=== PATIENT | male | born 1945 | race Caucasian/White ===

== ENCOUNTER 2016-07-02 09:28 | Observation (INO) | payer MEDICARE ==
[~2016-07-02] VITALS: Ht 185.4 cm; Wt 111.2 kg
[2016-07-02] VITALS (7 sets, daily range): BP systolic 136–161; BP diastolic 83–95; PULSE 58–67; RESP 16–20; O2SAT 97–98
[~2016-07-02 09:28] MED LIST: GLIP2.5T2 PO; LISI-571 PO; METO50TA3 PO; RIVA10TA PO
--- NOTE | 2016-07-02 09:46 | ED.REPORT ---
HPI-Abd Pain M 40 and Over Date of Service Jul 02, 2016 ED Provider: Johnson Vásquez DO Patient is a 70 year old male with a history of A-fib s/p ablation, HTN, and NIDDM who presents to the ED c/o rectal bleeding onset this morning after waking up. There has been two episodes of moderate bleeding since onset this morning but he has never experienced anything like this before. He c/o associated low back pressure. Patient denies abdominal pain or a recent hemorrhoid. He is on Metoprol and Lisinopril and was taken off Xarelto this March. Nursing Notes Stated Complaint: RECTAL BLEEDING Chief Complaint: Male Abdominal Pain Nursing Notes Reviewed: Yes Allergies: Coded Allergies: Sulfa (Sulfonamide Antibiotics) (Verified Allergy, Severe, Unknown, ) aspirin (Verified Allergy, Severe, Hives, 02/08/16) Penicillins (Unverified Allergy, Intermediate, 02/08/16) Uncoded Allergies: "Binders" used in medications (Vits) (Adverse Reaction, Severe, Hives, 02/07) NSAID's (Adverse Reaction, Intermediate, Hives (May be due to 'Binders'), 02/08/16) Scheduled Glipizide ER (Glipizide ER) 2.5 Mg Tab.er.24 2.5 MG PO DAILY Lisinopril (Lisinopril) 5 Mg Tablet 5 MG PO DAILY Metoprolol Tartrate (Metoprolol Tartrate) 50 Mg Tablet 50 MG PO BID Rivaroxaban (Xarelto) 10 Mg Tablet 20 MG PO DAILY@17 General Time Seen by MD: 09:42 Chief Complaint Rectal bleeding Hx Obtained From: Patient, Spouse Arrived By: Walk-in Sudden in Onset?: Yes Onset Occurred: 1 - 4 hours ago Symptom Duration: Since onset Progression since Onset: Constant Location: : Back Quality: Pressure Severity: Current: Mild Severity: Maximum: Mild Recent Healthcare: No recent hospitalization Similar Sx Previous: No Past Medical History Past Medical History Arthritis Reports: Diabetes mellitus, Hypertension Reports: Atrial fibrillation, Urinary tract infection Past Surgical History Ablation. TURPs x2 Smoking History Unknown if Ever Smoker Social History Alcohol Use: "Social" Drug Use: Denies drug use Ambulatory Status Independent Review of Systems Constitutional: Denies: Fever GI: Reports: Hematochezia, Denies: Abdominal pain, Diarrhea, Nausea, Vomiting Complete sys rev & neg: except as marked. Physical Exam Initial Vital Signs Vital Signs (First) Date Time Temp Pulse Resp B/P Pulse Ox O2 Delivery O2 Flow Rate FiO2 07/02/16 09:30 36.4 64 18 145/90 97 Room Air Initial VS: Reviewed, Vital signs normal Head / Eyes: Atraumatic, Normocephalic, PERRL Neck: Supple, Non-tender, Full range of motion Extremities: Vascular intact, Neuro intact, No swelling, No tenderness Skin: Warm, Dry, No cyanosis Neurologic: Alert, Oriented, Nonfocal Psychiatric: Mood/affect normal, Behavior normal, Normal thought content General/Constitutional: Awake, Alert, Well appearing Respiratory / Chest: Atraumatic, Breath sounds NL, Breath sounds = bilat, No respiratory distress Cardiovascular: Heart rate NL, Regular rhythm, Heart sounds NL Abdomen: Soft, Non-tender, No guarding, No rebound Rectum / Perineum: No discharge, No fecal impaction, No fissures, No hemorrhoids, No lesions, No mass Heriberto maroon blood. Interpretation & Diagnostics Lab Results Interpretation Result Diagram: 07/02/16 1000 07/02/16 1000 Test 07/02/16 10:00 White Blood Count 6.8th/mm3 (3.8-10.1) Red Blood Count 5.38mil/mm3 (4.40-5.80) Hemoglobin 15.6g/dL (13.8-17.2) Hematocrit 45.2% (41.0-50.0) Mean Corpuscular Volume 84.0fL (81-100) Mean Corpuscular Hemoglobin 29.0pg (27.0-35.0) Mean Corpuscular Hemoglobin Concent 34.5% (32.0-37.0) Red Cell Distribution Width 13.3% (12.3-15.4) Platelet Count 268bil/L (150-400) Neutrophils (%) (Auto) 59.3% (40-74) Lymphocytes (%) (Auto) 26.3% (14-46) Monocytes (%) (Auto) 11.5% (4-12) Eosinophils (%) (Auto) 1.9% (0-5) Basophils (%) (Auto) 0.7% (0-3) Prothrombin Time 9.9sec (8.1-12.5) Prothromb Time International Ratio 0.93ratio Sodium Level 137mEq/L (134-144) Potassium Level 4.8mEq/L (3.5-5.2) Chloride Level 103mEq/L (97-108) Carbon Dioxide Level 20mmol/L (18-29) Blood Urea Nitrogen 21mg/dL (8-27) Creatinine 1.10mg/dL (0.76-1.27) Estimat Glomerular Filtration Rate 70mL/min (>59) Glucose Level 129mg/dL (60-99) Calcium Level 9.4mg/dL (8.5-10.1) Total Bilirubin 0.7mg/dL (0.0-1.2) Aspartate Amino Transf (AST/SGOT) 24U/L (0-50) Alanine Aminotransferase (ALT/SGPT) 20U/L (0-44) Alkaline Phosphatase 58U/L (25-160) Total Protein 6.7g/dL (6.4-8.4) Albumin 4.0g/dL (3.4-5.0) ECG Interpretation ECG Interpretation: Sinus rhythm Abnormal R-wave progression, early transition Time: 12:00 Interpreted by: ED physician Abnormal Rate: Rate (61) Re-Eval/Medical Decision Med Decision/Clinical Course Concern for diverticular bleeding. Patient admitted. Source of Hx: Old records Time of Eval: 12:00 Re-Evaluation/Progress Note: Pt rechecked. Labs pending, will discuss once resulted and consult with GI. Time of Eval: 13:08 Re-Evaluation/Progress Note: Pt rechecked. Informed pt of need for admission. Pt understands and agrees with plan for admission. All questions addressed. 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 Recommends admit for serial H&H, Go-lightly prep, clear fluid diet. If rectal bleeding resolves may defer colonoscopy. He will consult. Consultation #2: Referral / Consult Name: Drew Cannon MD Call Returned at: 13:57 Welding Robot Operator: Will see patient, Agrees with plan, Accepts admit Note: Hospitalist is consulted and will admit. Counseled Regarding: Diagnosis, Lab results, Need for admission Discharge & Departure Primary Impression: Rectal hemorrhage Disposition: ADMITTED TO HOSPITAL Vital Signs - All Vital Signs Date Time Temp Pulse Resp B/P Pulse Ox O2 Delivery O2 Flow Rate FiO2 07/02/16 14:14 65 16 138/83 97 Room Air 07/02/16 13:01 62 20 136/84 97 Room Air 07/02/16 09:30 36.4 64 18 145/90 97 Room Air )( All Prior VS Reviewed: Yes Condition: Stable Referrals: NOPCP (PCP) [facility] May Attestation Portions of this note were transcribed by Mario Caldera and Damon Mesa. I, Dr. Vásquez personally performed the history, physical exam and medical decision-making; I reviewed and confirmed the accuracy of the information in the transcribed note. Signed by: May Palafox, 07/02 1200. copies to: [facility] Johnson Vásquez DO Jul 02, 2016 09:46 Mario Caldera Jul 02, 2016 09:55 DAMON MESA Jul 02, 2016 11:29
[2016-07-02] MEDS ORDERED: 0.9% Sodium Chloride 1,000 ML IV ONE (11:45)
[2016-07-02 12:03] LABS: BASOPHILS % (AUTO) 0.7 % (0-3); EOSINOPHILS % (AUTO) 1.9 % (0-5); MONOCYTES % (AUTO) 11.5 % (4-12); NEUTROPHILS % (AUTO) 59.3 % (40-74); Platelet Count 268 bil/L (150-400)
[2016-07-02 12:06] LABS: INR 0.93 ratio
[2016-07-02] MEDS ORDERED: PEG/Electrolytes 4,000 mL Solution PO ONE (13:05)
[2016-07-02] MEDS ORDERED: 0.9% Sodium Chloride 1,000 ML IV SCH (13:53)
[2016-07-02] MEDS ORDERED: Polyethylene Glycol (PEG) 17 Gm Powder PO PRN ×2 (13:55→14:30)
[2016-07-02] MEDS ORDERED: Alum-Mag Hydrox-Simeth 30 mL Suspension PO PRN ×2 (13:55→14:30)
[2016-07-02] MEDS ORDERED: Ondansetron 2 mg/mL 2 mL Inj IVPUSH PRN ×2 (13:55→14:30)
--- NOTE | 2016-07-02 14:03 | PCM.HPMED ---
Subjective Date of Service Jul 02, 2016 Primary Provider: Admitting Physician: Primary Care Physician: Ashwin Abdul Attending Physician: Admit Status: From the Emergency Department, 23-Hour Observation, Remote Telemetry Chief Complaint: Acute rectal bleeding History of Present Illness: Butch Anaya is a 70 year old male with Chronic Atrial fibrillation, Hypertension and diabetes that presents to [facility] emergency department c/o rectal bleeding. Patient reported this morning after waking up. He noticed the sensation to have a bowel movement and farted but felt something wet. He thought he had diarrhea but when he got out of the bed he noticed blood on the bed sheet and droppings on the floor. He denies any associated abdominal pain but noticed a low back pressure, midline and non radiating (no exacerbating or alleviating factors). He had a second episode a few minutes later. Denies taking any NSAIDs. He has never experienced anything like this before. He c/o associated low back pressure. Patient denies hemorrhoid. Previously on Xarelto for 3 month but never had any bleeding during that time. Last Colonoscopy was in 2011 no findings was reported. Case discussed with Dr Glez. Vitals stable and Hgb normal level. He spoke to Dr Urban who recommends admission to check serial H/H and prep for possible colonoscopy tomorrow if bleeding persists Review of Systems: Pertinent positives as noted in HPI. All other systems were reviewed and are negative Allergies Coded Allergies: Sulfa (Sulfonamide Antibiotics) (Verified Allergy, Severe, Unknown, ) aspirin (Verified Allergy, Severe, Hives, 02/08/16) Penicillins (Unverified Allergy, Intermediate, 02/08/16) Uncoded Allergies: "Binders" used in medications (Vits) (Adverse Reaction, Severe, Hives, 02/07) NSAID's (Adverse Reaction, Intermediate, Hives (May be due to 'Binders'), 02/08/16) Home Medications From [facility], NOT YET CONFIRMED Butch Anaya [id number] 1945 06/15/2016 01:00 PM 03/11 Fish Oil 1,000 mg capsule glipizide ER 2.5 mg tablet, extended release 24 hr TAKE 1 TABLET BY MOUTH EVERY DAY WITH BREAKFAST lisinopril 5 mg tablet TAKE 1 TABLET BY MOUTH EVERY DAY metoprolol tartrate 50 mg tablet take 1/2 tablet (for 25 mg) by oral route 2 times every day with meals Voltaren 1 % topical gel apply (2G) by topical route 2 times every day to the affected area(s) as needed for pain. PMH 1. Diabetes mellitus 2 with erectile dysfunction 2. Hypertension. 3. Obesity. 4. BPH 5. Chronic atrial fibrillation. ILIA and Cardioversion on 01/05/[address] Gore. Previously on Xarelto that was stopped in March (not needed as per Cardiology). s/p Ablation . Surgical History TURP s/p Ureteral stent placed Ablation procedure Family History Father had Diabetes and had pacemaker placed Mother of functional support analyst heart 2 years after No history of Colon cancer or other malignancy Social History Hx Alcohol Use: Yes Hx Substance Use: No Hx Tobacco Use: No Smoking Status: Never Smoker Living Arrangement: with Family (with ) Exam Vital Signs Vital Sign - Last Date Time Temp Pulse Resp B/P Pulse Ox O2 Delivery O2 Flow Rate FiO2 07/02/16 13:01 62 20 136/84 97 Room Air 07/02/16 09:30 36.4 Exam General: Alert, Oriented X3, Cooperative, No acute Distress Eyes: PERRLA, Scleral Anicteric No pale conjunctiva Mouth: Mouth Normal, Mucous Membranes Moist/[place] Neck: Supple, no Thyromegaly, trachea central. Chest & Lungs: Clear to auscultation & percussion, No adventitious breath sounds, no crackles, no wheeze Cardiovascular: Normal S1, Normal S2, No Murmurs/Rubs/Gallops, Regular Rate/ Rhythm, (No JVD, no peripheral edema) Pulses: Radial (present and equal), Dorsalis Pedi (present and equal) Abdomen: Soft, Non-tender, mildly distended but obese, Normoactive bowel tones. Musculoskeletal: Unremarkable. Normal range of motion, no swollen or erythematous joints Extremities: No edema, no cyanosis, no clubbing. Skin: No rashes. Warm and dry, no erythematous areas Neurological: Grossly neurologically intact, Normal Speech, Sensation Intact both legs Lymphatic: Lymph nodes Cervical and Axillary not palpable. Lab and Diagnostics Labs Laboratory Tests Test 07/02/16 10:00 White Blood Count 6.8th/mm3 (3.8-10.1) Red Blood Count 5.38mil/mm3 (4.40-5.80) Hemoglobin 15.6g/dL (13.8-17.2) Hematocrit 45.2% (41.0-50.0) Mean Corpuscular Volume 84.0fL (81-100) Mean Corpuscular Hemoglobin 29.0pg (27.0-35.0) Mean Corpuscular Hemoglobin Concent 34.5% (32.0-37.0) Red Cell Distribution Width 13.3% (12.3-15.4) Platelet Count 268bil/L (150-400) Neutrophils (%) (Auto) 59.3% (40-74) Lymphocytes (%) (Auto) 26.3% (14-46) Monocytes (%) (Auto) 11.5% (4-12) Eosinophils (%) (Auto) 1.9% (0-5) Basophils (%) (Auto) 0.7% (0-3) Prothrombin Time 9.9sec (8.1-12.5) Prothromb Time International Ratio 0.93ratio Sodium Level 137mEq/L (134-144) Potassium Level 4.8mEq/L (3.5-5.2) Chloride Level 103mEq/L (97-108) Carbon Dioxide Level 20mmol/L (18-29) Blood Urea Nitrogen 21mg/dL (8-27) Creatinine 1.10mg/dL (0.76-1.27) Estimat Glomerular Filtration Rate 70mL/min (>59) Glucose Level 129mg/dL (60-99) Calcium Level 9.4mg/dL (8.5-10.1) Total Bilirubin 0.7mg/dL (0.0-1.2) Aspartate Amino Transf (AST/SGOT) 24U/L (0-50) Alanine Aminotransferase (ALT/SGPT) 20U/L (0-44) Alkaline Phosphatase 58U/L (25-160) Total Protein 6.7g/dL (6.4-8.4) Albumin 4.0g/dL (3.4-5.0) Result Diagram: 07/02/16 1000 07/02/16 1000 X-Rays, CTs and MRIs X-RAY KUB 07/02 IMPRESSION: Unremarkable exam. Dictated by: Vandana Villalba M.D. on 07/02/2016 at 14:51 Approved by: Vandana Villalba M.D. on 07/02/2016 at 14:51 Assessment & Plan Butch Anaya is a 70 year old male with Chronic Atrial fibrillation, Hypertension and diabetes that presents to [facility] emergency department c/o rectal bleeding. 1. Acute Rectal bleeding. Present on admission Suspect Diverticular bleeding. Differential diagnosis includes Colon cancer, Vascular ectasias, Inflammatory bowel disease, Hemorrhoids, Anal fissure. - clear liquid diet for now - monitor serial H/H, transfusion triggers will be Hgb < 7 or if symptomatic - discussed case with Dr Urban, prep will be done tonight but no Colonscopy is planned unless he continues to bleed - If no bleeding tomorrow, consider discharge 2. Paroxysmal Atrial Fibrillation s/p Ablation. CHADS2 score 3 (Stroke rate 5.9 %/yr) Cardiology not recommending anticoagulations - monitor on telemetry - continue Metoprolol for rate control 3 Hypertension - continue Lisinopril 5 mg daily and Metoprolol 25 mg bid 4 Type 2 Diabetes presumed stable as he is not currently on insulin - low correction Lispro algorithm - checking A1c - holding Glipizide - Acetaminophen as needed for mild pain/fever/headache - Bowel regimen as needed - Antiemetic as needed Patient admitted under inpatient status with expected length of stay > 2 midnights for severity of present symptoms, complexities of treatment plan and risk for adverse event . Resuscitation Status: CPR: Attempt Resuscitation Drew Cannon MD Jul 02, 2016 14:03
--- NOTE | 2016-07-02 14:53 | DRSVH ---
PROCEDURE: X-RAY KUB ([id number]) INDICATIONS: rectal bleeding TECHNIQUE: One view of the abdomen acquired. COMPARISON: None. FINDINGS: Surgical changes and devices: None. Bowel: Bowel gas pattern is normal. Soft tissues: No suspicious abdominal calcifications. Visualized solid organ contours appear normal in size. Bones: No suspicious bony lesions. IMPRESSION: Unremarkable exam. Dictated by: Vandana Villalba M.D. on 07/02/2016 at 14:51 Approved by: Vandana Villalba M.D. on 07/02/2016 at 14:51
--- NOTE | 2016-07-02 14:58 | CONS ---
[address] [address] CONSULTATION REPORT PATIENT: LARY KOENIG : 1945 MR#: [id number] ADMIT: 07/02/2016 JOB ID: [id number] DATE OF SERVICE: PHYSICIAN REQUESTING CONSULTATION: Johnson Glez DO, emergency department. REASON FOR CONSULTATION: Rectal bleeding. PRIMARY CARE PROVIDER: Ashwin Abdul DO. HISTORY OF PRESENTING ILLNESS: The patient is a 70-year-old gentleman with a history of type 2 diabetes, hypertension, history of chronic atrial fibrillation, for which he underwent cardioversion late last year and is now, he states, in sinus rhythm. He presents for rectal bleeding. The patient states that he was in his usual state of health until 6 a.m. this morning, when he woke up with the urge to have a bowel movement. He normally wakes up at about this time to have a bowel movement. However, this morning, he noticed that he there was wetness in the anal area, even before he had a bowel movement. He then went to the bathroom and had a bowel movement, which was, he reports, just sharon blood. He is unsure if there was any brown stool. At this point, he decided to let the dogs out, as he normally does around this time for a walk, and then several hours later, he had the urge to have a another bowel movement. At this time, he passed more blood. At this point, he decided that he should come to the emergency department for further evaluation. He did report some mild lightheadedness with the initial episode of rectal bleeding. However, that subsequently resolved on its own. He had no shortness of breath or chest pain. He did report some lower back discomfort which also resolved with passing that initial blood. He had no other complaints, such as abdominal pain, nausea, vomiting, fevers, chills, or sweats. He reports no recent history of diarrhea or constipation. He does, however, state that yesterday, his bowel movement was not as large as he normally has. He denies any chronic history of constipation. He reports having had what he suspects is a normal colonoscopy about five years ago in [facility]. He was, however, recommended to have a repeat colonoscopy in three years but is unsure why three years rather than 10 years. He has no family history of colon cancer. He is unsure of whether he has diverticulosis based on his prior colonoscopy or was told he had internal hemorrhoids. He denies taking any anticoagulation medications. Previously, he was on Xarelto, but this was stopped following his cardioversion. He denies any chronic NSAID use. He denies any weight loss. He does report an approximately 30-pound weight gain over the past five years. He states that he is in otherwise good health. PAST MEDICAL HISTORY: Significant for type 2 diabetes, hypertension, BPH, chronic atrial fibrillation for which he has been cardioverted. PAST SURGICAL HISTORY: Includes prostate surgery. FAMILY HISTORY: States his father may have of cancer, but this is not for certain, and unsure of what type of cancer. SOCIAL HISTORY: Occasional alcohol use. Denies any tobacco use. 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 HOME MEDICATIONS: Include metoprolol, lisinopril, and glipizide. ALLERGIES: He has allergies to: 1. SULFA DRUGS. 2. ASPIRIN. 3. PENICILLIN. 4. NSAIDS. REVIEW OF SYSTEMS: His review of systems is otherwise negative, except as mentioned in the HPI. PHYSICAL EXAMINATION: His temperature is 36.4. His pulse is 62. His blood pressure is 136/84. His respiratory rate is 20. O2 saturation is 97% on room air. Generally, he is not in apparent distress. He looks younger than his stated age. He is oriented to person, place, and time, and answers questions appropriately. HEENT: No pallor, no icterus. Oropharynx is clear. No cervical lymph nodes palpable. No carotid bruits appreciated. Chest is clear to auscultation bilaterally. No telangiectasias appreciated on anterior chest wall. Abdomen exam: He does have a large ventral hernia which is prominent when intra-abdominal pressure is increased. He also has what appears to be a small umbilical hernia as well, which is easily reducible. Abdomen is obese. It is distended. It is soft. It is nontender. It is dull to percussion in bilateral flanks. Bowel sounds are appreciated. Extremities without edema. Rectal exam was performed by the emergency department physician which revealed, he stated, bright red blood. He did not notice any external hemorrhoids or fissures. LABORATORY DATA: Shows a completely normal CBC. Normal PT and INR. His comprehensive metabolic profile is completely normal except for a serum glucose of 129. He has not had any abdominal imaging tests for chest x-ray. ASSESSMENT/PLAN: A 70-year-old gentleman presenting with painless rectal bleeding, without anemia. The differential includes diverticular bleed versus neoplasm, versus ischemia, versus colitis, versus benign anorectal disease. I would recommend trending his hemoglobin and his hematocrit over the next 18 hours. If his hemoglobin and hematocrit should trend down, I feel colonoscopy would be warranted for further evaluation. However, if his H and H remain stable and he has no further bleeding, he could be discharged and he could follow up as an outpatient for colonoscopy. I do not believe we are dealing with an upper GI source, as he has no upper GI complaints. His BUN is normal and his vital signs are completely stable. In addition, on my abdominal exam, he does have a ventral hernia which he has not symptomatic from. However, would consider having General Surgery see him as an outpatient. On my physical exam, he did have some dullness to percussion in bilateral flanks and therefore will obtain an abdominal ultrasound to rule out any evidence of ascites. Thank you for allowing me to participate in the patient's care. If you should have any further questions, please do not hesitate to contact me.
[2016-07-02] MEDS: 0.9% Sodium Chloride 1,000 ML IV SCH (16:38)
--- NOTE | 2016-07-02 17:48 | NUR ---
ZUNILDA explained and signed. Copy of ZUNILDA and Medicare self administered medication information given to pt.
--- NOTE | 2016-07-02 18:42 | NUR ---
Admit Pt brought to unit at 1427 in w/c from x-ray. Needed to use restroom and was able to urinate and only had smear of blood/feces. Pt A&O x 3, DAVEY, VSS and up independently in room. IV s/l, but connected to fluids. Pt has no c/o pain. On RA and telemetry applied. Pt had punch bx of left shoulder done 3 weeks ago and has scab. Pt states he gave us advance directive in January, but wasn't seen in EMR, asked to bring new copy in.
--- NOTE | 2016-07-02 19:25 | NUR ---
Bowel prep Bowel prep started and pt tolerating well. Able to have one large, explosive BM that went onto pt, floor and into hat in toilet. Liquid with formed brown stool, no overt signs of blood. Bowel prep continues.
[2016-07-02] MEDS ORDERED: diphenhydrAMINE 50 mg Capsule PO ONE (20:55)
--- NOTE | 2016-07-02 21:34 | NUR ---
paged Lalo JAMES paged about hypertension. No new orders at this time. Lalo advised to keep watch on BP, and to page again if BP gets higher. Lalo JAMES paged about episode of hives in toes and tongue (both about the shape of a head of a pencil eraser). Lalo JAMES ordered to give 50 mg PO Benadryl, which was administered. Will continue to monitor.
[2016-07-03] VITALS (8 sets, daily range): BP systolic 113–148; BP diastolic 66–88; PULSE 59–77; RESP 15–18; O2SAT 92–98
[2016-07-03] MEDS: 0.9% Sodium Chloride 1,000 ML IV SCH ×2 (02:08→11:22)
[2016-07-03 05:25] LABS: Mean Corpuscular Hemoglobin 28.9 pg (27.0-35.0); Mean Corpuscular Volume 86.8 fL (81-100)
--- NOTE | 2016-07-03 05:56 | NUR ---
BM Pt. reported having some minor blood in stool last evening, but however reports no blood in stool this AM. Will continue to monitor.
--- NOTE | 2016-07-03 09:43 | PCM.DIMED ---
Discharge Instructions Date of Service July 03, 2016 Dates of Hospitalization Jul 02, 2016 at 14:26 Discharge Diagnosis Discharge Diagnosis Lower GI Bleed, stable, T2DM, HTN, BPH Diet Heart Healthy, Diabetic Activity No restrictions Call your provider Fever or Chills, Shortness of breath, Bleeding, Chest pain, Vomitting, Excessive diarrhea, Weakness (unilateral) Patient Instructions Follow-up plan Please F/U with Dr. Gavin in 2 weeks Please F/U with PCP in one week. F/U H&H prior to f/u with PCP Ivy Johnson DO July 03, 2016 09:42
--- NOTE | 2016-07-03 11:20 | DRSVH ---
PROCEDURE: US ABDOMEN INDICATIONS: distended abdomen TECHNIQUE: Real-time scanning was performed of the abdominal and retroperitoneal organs, with image documentatio n. COMPARISON: [facility], CT, CT KUB, 11/05/2014, 12:05. FINDINGS: Liver length: 15.25 cm Gallbladder Wall Thickness: 1.70 mm CBD: 2.10 mm Spleen length: 9.23 cm Right kidney length: 12.64 cm Left kidney length: 11.18 cm Aorta(Mid): 2.35 cm Aorta(Distal): 1.95 cm RCIA: 1.31 cm LCIA: 1.51 cm Liver: Liver is diffusely increased in echogenicity. No focal hepatic abnormalities identified. No rmal hepatic size. Simple left hepatic lobe liver cyst measuring up to 5.8 cm. Gallbladder: Multiple gallstones present. No gallbladder wall thickening or pericholecystic fluid. Negative sonographic Lee sign. Biliary ducts: Intrahepatic bile ducts are non-dilated. Extrahepatic bile duct caliber is normal. Normal is 6-7 mm or less in diameter, or 10 mm or less post-cholecystectomy. Pancreas: Visualized portions of the pancreas are sonographically normal. Spleen: Spleen is normal in size and homogeneous in echotexture. Kidneys: Kidneys are normal in size and echotexture. No hydronephrosis or nephrolithiasis. No justin d masses. Of note, distended left extrarenal pelvis with mild caliectasis redemonstrated similar to prior CT scan Aorta: Visualized aorta is normal in caliber at less than 3 cm. Iliacs: Proximal common iliac arteries are normal in caliber at less than 2.5 cm. IVC: Intrahepatic inferior vena cava is patent. Miscellaneous: No free abdominal fluid. IMPRESSION: 1. Increased hepatic echogenicity noted likely related to fatty infiltration of the liver but other s ources of hepatocellular disease cannot be excluded. Recommend clinical correlation. 2. Cholelithiasis without evidence for associated cholecystitis. 3. Prominent left extrarenal pelvis with mild pelvocaliectasis redemonstrated. Dictated by: Mac Perez RRA Interpreted: Keli Syed MD on 07/03/2016 at 11:16 Transcribed by: HARINDER on 07/03/2016 at 11:20 Approved by: Keli Syed MD, PhD on 07/03/2016 at 12:20
--- NOTE | 2016-07-03 13:57 | NUR ---
Social Work: Initial Assessment/Discharge D: EMR reviewed. Pt is 70 y/o male admitted for lower GI bleed per H&P. SW met with pt at bedside to conduct initial assessment. Pt was alert and oriented x3. Pt's insurance is Medicare and [employer] Supplemental. Pt's primary contact is Louise Anaya ([phone]). Pt has no history of HH or SNF. Pt has no LTC or VA insurance. Pt completed DPOA/advanced directive and provided a copy to the hospital in January. Pt's PCP is Dr. Abdul ([facility]). Pt lives at home with in concrete. Pt is independent at baseline. Pt drives. Pt lives in a 1-story home with no stairs. Pt does not use any DME and is independent of ADLs. Pt will transport home via POV with after 5pm today. Pt has no needs at discharge at this time. SW will continue to follow if needs arise. Assessment: Pt who is independent at baseline. Plan: Pt to transport home with via POV after 5pm today. Pt will likely have no needs at time of discharge. JOSEPHINE Alcaraz Addendum: 07/03/16 at 1358 by KATIA SANTANA Amended: Links added.
[2016-07-03] MEDS ORDERED: fentaNYL-PF 50 mCg/mL 2 mL Inj ONE (14:54)
[2016-07-03] MEDS ORDERED: fentaNYL-PF 50 mCg/mL 2 mL Inj IVPUSH PRN (15:00)
[2016-07-03] MEDS ORDERED: 0.9% Sodium Chloride 1,000 ML IV ONE ×2 (15:20→15:36)
[2016-07-03] MEDS ORDERED: METO25TA6 PO (15:34)
--- NOTE | 2016-07-03 18:29 | NUR ---
Discharge Orders for discharge were received. The patient was made aware of the plan to discharge and was agreeable to go. The patient was given information regarding his diagnosis and treatment, signs and symptoms to be aware of, follow up instructions with PCP and GI, medication instruction. The patient signified understanding of this information and his asymptomatic IV was removed intact. The patient was then dressed in his own clothing and his belongings were gathered. The patient then ambulated off the floor to the main entrance and entered a private vehicle. At the time of discharge the patient was alert and oriented, with no complaints of pain, unusual bleeding, nausea or other difficulty.
--- NOTE | 2016-07-03 20:51 | PCM.DC.MED ---
Discharge Summary Date of Service July 03, 2016 Dates of Hospitalization Date of Hospital Admission Jul 02, 2016 at 14:26 Date of Discharge: July 03, 2016 Providers: Admitting Physician: Drew Cannon MD Primary Care Physician: Nopmiguel a Attending Physician: Drew Cannon MD Diagnosis at Time of Discharge Diagnosis at Time of Discharge Lower GI Bleed, stable, T2DM, HTN, BPH, Afib Consultations GI Procedures XRay, CTs & MRIs X-RAY KUB 07/02 IMPRESSION: Unremarkable exam. Dictated by: Vandana Villalba M.D. on 07/02/2016 at 14:51 Approved by: Vandana Villalba M.D. on 07/02/2016 at 14:51 PROCEDURE: US ABDOMEN INDICATIONS: distended abdomen IMPRESSION: 1. Increased hepatic echogenicity noted likely related to fatty infiltration of the liver but other sources of hepatocellular disease cannot be excluded. Recommend clinical correlation. 2. Cholelithiasis without evidence for associated cholecystitis. 3. Prominent left extrarenal pelvis with mild pelvocaliectasis redemonstrated. Dictated by: Mac Perez RR Interpreted: Keli Syed MD on 07/03/2016 at 11:16 Transcribed by: HARINDER on 07/03/2016 at 11:20 Brief History Butch Anaya is a 70 year old male with Chronic Atrial fibrillation, Hypertension and diabetes that presents to [facility] emergency department c/o rectal bleeding. Patient reported this morning after waking up. He noticed the sensation to have a bowel movement and farted but felt something wet. He thought he had diarrhea but when he got out of the bed he noticed blood on the bed sheet and droppings on the floor. He denies any associated abdominal pain but noticed a low back pressure, midline and non radiating (no exacerbating or alleviating factors). He had a second episode a few minutes later. Denies taking any NSAIDs. He has never experienced anything like this before. He c/o associated low back pressure. Patient denies hemorrhoid. Previously on Xarelto for 3 month but never had any bleeding during that time. Last Colonoscopy was in 2011 no findings was reported. Case discussed with Dr Glez. Vitals stable and Hgb normal level. He spoke to Dr Urban who recommends admission to check serial H/H and prep for possible colonoscopy tomorrow if bleeding persists Hospital Course Butch Anaya is a 70 year old male with Chronic Atrial fibrillation, Hypertension and diabetes that presents to [facility] emergency department c/o rectal bleeding. 1. Acute Rectal bleeding. Present on admission Suspect Diverticular bleeding. Differential diagnosis includes Colon cancer, Vascular ectasias, Inflammatory bowel disease, Hemorrhoids, Anal fissure. - clear liquid diet for now - monitor serial H/H, transfusion triggers will be Hgb < 7 or if symptomatic - discussed case with Dr Urban, prep will be done tonight but no Colonscopy is planned unless he continues to bleed: Patient states that he experienced hives after drinking the colonoscopy prep, Dr. dietz has told the patient that since he would have to go through this again he would rather scope him on 07/03. Patient is scheduled to go at 2:30 PM. -- Requested. Colonoscopy results from 2012 colonoscopy from [facility]: Reviewed these records. There was a finding of sessile polyp 6 mm that was thought to be villous as well as adenomatous. 3 year follow-up is recommended. These results were communicated to Dr. Dietz [place] -- Patient underwent a colonoscopy this afternoon, per Dr. Valle, patient did not complete his prep brown stool was found as well as hemorrhoids and 8 mm polyp is resected and a clip was placed for hemostasis. Dr Valle's office will schedule a repeat colonoscopy in the coming weeks. -- On the day of discharge patient's her hemoglobin remained stable 2. Paroxysmal Atrial Fibrillation s/p Ablation. CHADS2 score 3 (Stroke rate 5.9 %/yr) Cardiology not recommending anticoagulations - monitor on telemetry - continue Metoprolol for rate control: Metoprolol restarted 07/03 -- Patient stated that metoprolol is cutting half recently to 25 mg by mouth twice a day 3 Hypertension - continue Lisinopril 5 mg daily and Metoprolol 25 mg bid: Metoprolol restarted 07/03, restart lisinopril 5/ 2 AM as he will be undergoing a procedure and will be sedated the next few hours -- He states that he is not on 50 twice a day of metoprolol as documented by his manager specialty Dr. Gore decreased it to 25 mg twice a day 4 Type 2 Diabetes presumed stable as he is not currently on insulin - low correction Lispro algorithm - checking A1c - holding Glipizide 5. Fatty liver as evidenced by the ultrasound 07/03 a.m.: Discussed this finding with patient. Counseled him on healthy diet 6 : Cholelithiasis as evidenced by the ultrasound 07/03 AM: Patient can consider elective cholecystectomy, we requested PCP follows up with us as this is not an urgent consideration. 7. Prominent left extrarenal pelvis with mild pelvocaliectasis as evidenced by the abdominal ultrasound on 07/03 : This has been there since [id number] prior imaging. We recommend that patient follows up with urology as outpatient. This can be set up via PCP. - Acetaminophen as needed for mild pain/fever/headache - Bowel regimen as needed - Antiemetic as needed Patient admitted under inpatient status with expected length of stay > 2 midnights for severity of present symptoms, complexities of treatment plan and risk for adverse event . Exam Vital Signs (Last) Date Time Temp Pulse Resp B/P Pulse Ox O2 Delivery O2 Flow Rate FiO2 07/03/16 09:25 73 07/03/16 04:59 36.6 18 137/77 96 Room Air Exam Gen.: No acute distress sitting up in chair talking with the HEENT: Normocephalic, atraumatic Heart: Regular rate and rhythm no S3-S4 sounds Lungs clear to auscultation bilaterally no crackles or wheezes Abdomen: Distended due to ventral hernia, normal bowel sounds, negative to tenderness to deep palpation Psych: Negative for anxiety Neurologic negative for focal neurological deficits Neck: Negative for thyromegaly Test 07/02/16 10:00 07/02/16 15:44 07/03/16 05:00 Neutrophils (%) (Auto) 59.3% (40-74) Lymphocytes (%) (Auto) 26.3% (14-46) Monocytes (%) (Auto) 11.5% (4-12) Eosinophils (%) (Auto) 1.9% (0-5) Basophils (%) (Auto) 0.7% (0-3) Prothrombin Time 9.9sec (8.1-12.5) Prothromb Time International Ratio 0.93ratio Total Bilirubin 0.7mg/dL (0.0-1.2) Aspartate Amino Transf (AST/SGOT) 24U/L (0-50) Alanine Aminotransferase (ALT/SGPT) 20U/L (0-44) Alkaline Phosphatase 58U/L (25-160) Total Protein 6.7g/dL (6.4-8.4) Albumin 4.0g/dL (3.4-5.0) Hold Guo Top Tube Received (Received) Hold Urine Received (Received) White Blood Count 6.3th/mm3 (3.8-10.1) Red Blood Count 5.01mil/mm3 (4.40-5.80) Hemoglobin 14.5g/dL (13.8-17.2) Hematocrit 43.5% (41.0-50.0) Mean Corpuscular Volume 86.8fL (81-100) Mean Corpuscular Hemoglobin 28.9pg (27.0-35.0) Mean Corpuscular Hemoglobin Concent 33.3% (32.0-37.0) Red Cell Distribution Width 13.3% (12.3-15.4) Platelet Count 236bil/L (150-400) Sodium Level 143mEq/L (134-144) Potassium Level 4.4mEq/L (3.5-5.2) Chloride Level 106mEq/L (97-108) Carbon Dioxide Level 24mmol/L (18-29) Blood Urea Nitrogen 15mg/dL (8-27) Creatinine 1.20mg/dL (0.76-1.27) Estimat Glomerular Filtration Rate 63mL/min (>59) Glucose Level 134mg/dL (60-99) Calcium Level 8.2mg/dL (8.5-10.1) Discharge Medications Discharge Medications Glipizide ER (Glipizide ER) 2.5 Mg Tab.er.24 2.5 MG PO DAILY (Reported) Lisinopril (Lisinopril) 5 Mg Tablet 5 MG PO DAILY (Reported) Metoprolol Tartrate (Metoprolol Tartrate) 25 Mg Tablet 25 MG PO BID Prescribed by: IVY PRINCE DO Followup Plan Follow-up plan Please F/U with Dr. Gavin in 2 weeks Please F/U with PCP in one week. F/U H&H prior to f/u with PCP Discharge Diet: Heart Healthy, Diabetic Discharge Activity: No restrictions Ivy Prince DO July 03, 2016 09:47
--- NOTE | 2016-07-03 22:53 | ENDO ---
[address] [address] ENDOSCOPY PROCEDURE PATIENT: LARY KOENIG : 1945 MR#: [id number] ADMIT: 07/02/2016 JOB ID: [id number] PROCEDURE: Colonoscopy. INDICATIONS: Rectal bleeding. The patient's ASA classification is 2, Mallampati score is 2. MEDICATIONS: 1. Versed 3 mg. 2. Fentanyl 75 mcg. INSTRUMENT USED: PCF H 180 AL. PREPARATION QUALITY: Poor. PROCEDURE DETAILS: After informed consent was obtained, the patient was brought to the GI suite, where he was placed on oxygen via nasal cannula and monitored with continuous pulse oximeter, telemetry, and blood pressure monitoring. A time-out was performed and then he was placed in a left lateral decubitus position and medications were administered for sedation. Digital rectal exam was performed and was unremarkable. The colonoscope was then inserted into the rectum and advanced under direct visualization to the cecum which was identified by the presence of the ileocecal valve and appendiceal orifice. Once the cecum was reached, the colonoscope was withdrawn back into the rectum as the mucosa and lumen were examined. In the rectum, retroflexion was performed. Following retroflexion, remaining air in the rectum was suctioned, and procedure was completed. FINDINGS: 1. The prep of the entire colon was poor. There was semi-solid stool from the rectum all the way to the cecum. 2. In the ascending colon, there was an approximately 8 mm sessile polyp that was removed with a hot snare. Following removal, one hemoclip was placed at the polypectomy site to decrease the risk of post polypectomy bleeding. 3. Retroflexed views in the rectum revealed moderate-sized internal hemorrhoids. IMPRESSION: 1. Poor prep. 2. Ascending colon polyp. 3. Internal hemorrhoids. RECOMMENDATIONS: 1. Avoid NSAIDs and anticoagulants for 72 hours. 2. Repeat colonoscopy with a two day prep as an outpatient. 3. Start diet and advance as tolerated. 4. Further plans as per the floor team. COMPLICATIONS: None. ESTIMATED BLOOD LOSS: 0.
--- NOTE | 2016-07-06 15:08 | PATH ---
SURGICAL PATHOLOGY Attending Physician:Ligia France CASE STATUS: Signed Out PATIENT NAME: LARY KOENIG PID: [id number] : 1945 DATE COLLECTED:07/03/2016 00:00 SPECIMEN: Colon, Biopsy CLINICAL HISTORY: 1). ASCENDING POLYP FINAL DIAGNOSIS: Ascending Colon, Polyp, Biopsy: Multiple portions (approximately six) of tubular adenoma; negative for high-grade dysplasia. ICD10: K63.5 GROSS DESCRIPTION: The specimen is received in one formalin filled container labeled with the patient's name, sublabeled "ascending polyp" and consists of multiple portions of tissue which aggregate to 0.9 x 0.8 x 0.4 CM. The specimen is entirely submitted in one cassette. 07/04/2016 [facility] ICD-9 CODES: CPT CODES: 1: 78890 Electronically Signed Out Bee Loza MD [facility] [address], [place] [address] Technical component performed at [facility], [facility] [address], [place], [address]
== END 2016-07-03 17:45 | disposition home or self-care (01) ==
LOC: SED 09:58 → OSC 14:26
PROVIDERS: ADMIT Hospitalist; ATTEND Hospitalist
DX: K62.5 Hemorrhage of anus and rectum (principal); D12.2 Benign neoplasm of ascending colon; K64.8 Other hemorrhoids; E11.9 Type 2 diabetes mellitus without complications; I10 Essential (primary) hypertension; N40.0 Benign prostatic hyperplasia without lower urinary tract symptoms; I48.0 Paroxysmal atrial fibrillation; K76.0 Fatty (change of) liver, not elsewhere classified; K80.20 Calculus of gallbladder without cholecystitis without obstruction; E66.9 Obesity, unspecified; Z79.01 Long term (current) use of anticoagulants; Z79.84 Long term (current) use of oral hypoglycemic drugs
CPT/HCPCS: 36415; 45385; 74000; 76700; 80048; 80053; 85014; 85018; 85025; 85027; 85610; 86850; 93005; 96360; 99285; G0378; J2250; J3010; J7030

== ENCOUNTER 2016-07-04 16:00 | Inpatient (IN) | payer MEDICARE ==
[~2016-07-04] VITALS: Ht 185.4 cm; Wt 112.0 kg
[2016-07-04] VITALS (15 sets, daily range): BP systolic 101–134; BP diastolic 56–86; PULSE 80–113; RESP 12–21; O2SAT 96–100
[~2016-07-04 16:00] MED LIST changes: +Lidocaine 1%-Epi 1:100,000 20 mL Inj ONE; +METO25TA6 PO; -METO50TA3 PO; +Propofol 10,000 mCg/mL 20 mL Inj ONE; -RIVA10TA PO
--- NOTE | 2016-07-04 16:19 | ED.REPORT ---
HPI-GI Bleed Date of Service July 04, 2016 ED Provider: Dr. Uribe Patient is a 70 year old male with a history of A-fib s/p ablation, HTN, and NIDDM presenting the ED c/o rectal bleeding. He was previously seen and admitted for rectal bleeding and was discharged yesterday. This morning he woke up with a small amount of dark blood and at 13:30 felt as though he was going to have diarrhea and noticed bright red stool. The symptoms have continued to intensify. He admits to 6 episodes of diarrhea since onset today. It has became so severe that he feels as thought he cannot hold it in. He has also noticed dizziness and generalized weakness. He denies nausea, vomiting, or abdominal pain. Nursing Notes Stated Complaint: RECTAL BLEED Chief Complaint: General Complaint Nursing Notes Reviewed: Yes Allergies: Coded Allergies: Sulfa (Sulfonamide Antibiotics) (Verified Allergy, Severe, Unknown, ) aspirin (Verified Allergy, Severe, Hives, 02/08/16) Penicillins (Unverified Allergy, Intermediate, 02/08/16) Uncoded Allergies: "Binders" used in medications (Vits) (Adverse Reaction, Severe, Hives, 02/07) NSAID's (Adverse Reaction, Intermediate, Hives (May be due to 'Binders'), 02/08/16) Scheduled Glipizide ER (Glipizide ER) 2.5 Mg Tab.er.24 2.5 MG PO DAILY Lisinopril (Lisinopril) 5 Mg Tablet 5 MG PO DAILY Metoprolol Tartrate (Metoprolol Tartrate) 25 Mg Tablet 25 MG PO BID General Time Seen by Provider: 16:25 Chief Complaint Chief Complaint: Rectal pain Hx Obtained From: Patient Arrived By: Walk-in Onset Occurred: Just prior to arrival Symptom Duration: Since onset Progression Since Onset: Rapidly worsening Similar Sx Previous: No Past Medical History Past Medical History Arthritis Reports: Diabetes mellitus, Hypertension Reports: Atrial fibrillation, Urinary tract infection Past Surgical History Ablation. TURPs x2 Smoking History Never Smoker Social History Alcohol Use: "Social" Drug Use: Denies drug use Ambulatory Status Independent Review of Systems Constitutional: Reports: Weakness - generalized GI: Reports: Bloody/tarry stool, Diarrhea, Denies: Abdominal pain, Nausea, Vomiting Hematologic: Reports Bleeding Neurologic: Reports: Dizziness Complete sys rev & neg: except as marked. Physical Exam Initial Vital Signs Vital Signs (First) Date Time Temp Pulse Resp B/P Pulse Ox O2 Delivery O2 Flow Rate FiO2 07/04/16 16:15 36.9 102 13 131/79 97 Nasal Cannula 2 Initial VS: Reviewed, Vital signs abnormal Head / Eyes: Atraumatic, Normocephalic, PERRL ENT: Mucous membranes moist, Conjunctiva normal, No scleral icterus Neck: Supple, Non-tender, Full range of motion Extremities: Vascular intact, Neuro intact, No swelling, No tenderness Skin: Warm, Dry, No cyanosis Neurologic: Alert, Oriented, Nonfocal Psychiatric: Mood/affect normal, Behavior normal, Normal thought content General/Constitutional: Awake, Alert Respiratory / Chest: Atraumatic, Breath sounds NL, Breath sounds = bilat, No respiratory distress, No rales, No rhonchi, No wheezing Cardiovascular: Heart rate NL, Regular rhythm, Heart sounds NL Abdomen: Atraumatic, Soft, Non-tender, No guarding, No rebound, BS normoactive , No distention, No palpable mass, No pulsatile mass RECTUM: Gross blood on the bed sheets coming from his rectum. Interpretation & Diagnostics Lab Results Interpretation Result Diagram: 07/04/16 1937 07/04/16 1650 Test 07/04/16 16:50 White Blood Count 7.3th/mm3 (3.8-10.1) Red Blood Count 4.28mil/mm3 (4.40-5.80) Mean Corpuscular Volume 86.4fL (81-100) Mean Corpuscular Hemoglobin 29.2pg (27.0-35.0) Mean Corpuscular Hemoglobin Concent 33.8% (32.0-37.0) Red Cell Distribution Width 13.0% (12.3-15.4) Platelet Count 229bil/L (150-400) Neutrophils (%) (Auto) 66.1% (40-74) Lymphocytes (%) (Auto) 20.8% (14-46) Monocytes (%) (Auto) 10.9% (4-12) Eosinophils (%) (Auto) 1.6% (0-5) Basophils (%) (Auto) 0.5% (0-3) Prothrombin Time 10.8sec (8.1-12.5) Prothromb Time International Ratio 1.01ratio Sodium Level 138mEq/L (134-144) Potassium Level 3.7mEq/L (3.5-5.2) Chloride Level 107mEq/L (97-108) Carbon Dioxide Level 18mmol/L (18-29) Blood Urea Nitrogen 16mg/dL (8-27) Creatinine 1.11mg/dL (0.76-1.27) Estimat Glomerular Filtration Rate 69mL/min (>59) Glucose Level 124mg/dL (60-99) Calcium Level 8.0mg/dL (8.5-10.1) Magnesium Level 1.9mg/dL (1.6-2.6) Total Bilirubin 0.6mg/dL (0.0-1.2) Aspartate Amino Transf (AST/SGOT) 16U/L (0-50) Alanine Aminotransferase (ALT/SGPT) 17U/L (0-44) Alkaline Phosphatase 46U/L (25-160) Troponin T < 0.010ug/L (0.0-0.011) Total Protein 5.3g/dL (6.4-8.4) Albumin 3.1g/dL (3.4-5.0) Hold Guo Top Tube Received (Received) ECG Interpretation ECG Interpretation: First degree AV block Early R-wave progression No acute ST-wave changes Time: 16:25 Interpreted by: ED physician Normal ECG Interpretation: Normal sinus rhythm (90) Re-Eval/Medical Decision Med Decision/Clinical Course The patient was just discharged and had a polypectomy. He is having brisk bleeding from his rectum and asymptomatic. Both Dr. Cuello, he is etch operator semiconductor wafers for gastroenterology, he came and saw the patient. The patient's bleeding started to slow while here in the emergency department. Source of Hx: Old records Re-Evaluation/Progress : Time of Eval: 16:25 Re-Evaluation/Progress Note: Patients condition and plan for admission are discussed. He understands and agrees with the plan. All questions have been answered at this time. Consultation #1: Referral / Consult Name: Tan Cuello MD Call Returned at: 16:32 Producer Arborist Manager: Will see patient Note: Patients condition is discussed. Agrees to see patient. Consultation #2: Referral / Consult Name: Tru Cruz MD Consulted With: Hospitalist Producer Arborist Manager: Will see patient, Agrees with eval, Agrees with plan, Accepts admit Counseled Regarding: Diagnosis, Lab results, Need for admission Discharge & Departure Impression: Primary Impression: GI bleed GI bleed type/associated pathology: unspecified gastrointestinal hemorrhage type Qualified Code: K92.2 - Gastrointestinal hemorrhage, unspecified Disposition: ADMITTED TO HOSPITAL Discharge Condition All VS Reviewed: Yes Condition: Stable Referrals: NOPCP (PCP) Scribe Attestation Portions of this note were transcribed by Mario Hernández. I, Dr. Uribe personally performed the history, physical exam and medical decision- making; I reviewed and confirmed the accuracy of the information in the transcribed note. Signed by: Mario Hernández, [place], 2016and [id number]. copies to: [facility] Carlotta Uribe MD July 04, 2016 16:19 Mario Caldera July 04, 2016 16:34 Khloe Hernández July 04, 2016 21:25
[2016-07-04] MEDS ORDERED: 0.9% Sodium Chloride 1,000 ML IV ONE (16:33)
[2016-07-04 17:04] LABS: BASOPHILS % (AUTO) 0.5 % (0-3); EOSINOPHILS % (AUTO) 1.6 % (0-5); MONOCYTES % (AUTO) 10.9 % (4-12); Mean Corpuscular Hemoglobin 29.2 pg (27.0-35.0); Mean Corpuscular Volume 86.4 fL (81-100); NEUTROPHILS % (AUTO) 66.1 % (40-74); Platelet Count 229 bil/L (150-400)
[2016-07-04 17:19] LABS: INR 1.01 ratio
[2016-07-04 17:26] LABS: TROPONIN T < 0.010 ug/L (0.0-0.011)
[2016-07-04 17:36] LABS: Magnesium 1.9 mg/dL (1.6-2.6)
--- NOTE | 2016-07-04 17:41 | PCM.CHPMED ---
Subjective Date of Service: July 04, 2016 Provider requesting consult: Carlotta Uribe MD Primary Physician: Admitting Physician: Primary Care Physician: Belén Attending Physician: Chief Complaint: Chief Complaint: Rectal bleeding History of Present Illness: 70 year old male on A-fib s/p ablation and currently takes metoprolol, HTN, TURP 2 and NIDDM presenting the ED due to ongoing rectal bleeding after polypectomy was performed yesterday at [facility]. Patient states that after he was discharged yesterday he did well he will have a small amount of blood in his stool this morning that was dark red. Around 1300 patient developed urgency and had a bowel movement with a large amount of bright red blood mixed with clot. This continued intermittently until the patient presented this afternoon. Patient denies being lightheaded, chest pain, shortness of breath, severe abdominal pain, epigastric pain, blurred vision, or dizziness. Please see prior notes more information on patient's last stay Emergency department patient's H&H was 12.5/37.0. After approximately an hour he dropped to 12.0/35.8. EGD was recommended and patient consented, however he had eaten a small piece of chocolate at noon today and will have to wait as he is currently hemodynamically stable. Discussion was held with patient and anesthesia and should patient become unstable tonight emergency EGD will be performed. Other labs are within normal except for blood sugar of 124 PMH Past Medical History Arthritis Reports: Diabetes mellitus, Hypertension Reports: Atrial fibrillation, Urinary tract infection Hx Any Other Health Problems?: YesHx Diabetes: Yes Surgical History Ablation. TURPs x2 Polypectomy yesterday Home Medications Glipizide ER (Glipizide ER) 2.5 Mg Tab.er.24 2.5 MG PO DAILY Lisinopril (Lisinopril) 5 Mg Tablet 5 MG PO DAILY Metoprolol Tartrate (Metoprolol Tartrate) 25 Mg Tablet 25 MG PO BID Allergies: Coded Allergies: Sulfa (Sulfonamide Antibiotics) (Verified Allergy, Severe, Unknown, ) aspirin (Verified Allergy, Severe, Hives, 02/08/16) Penicillins (Unverified Allergy, Intermediate, 02/08/16) Uncoded Allergies: "Binders" used in medications (Vits) (Adverse Reaction, Severe, Hives, 12/6 /16) NSAID's (Adverse Reaction, Intermediate, Hives (May be due to 'Binders'), 02/08/16) Family History Family History No reported history of colon cancer Social History Hx Alcohol Use: YesHx Substance Use: NoHx Tobacco Use: No Smoking Status: Never Smoker Exam Vital Signs Vital Sign - Last Date Time Temp Pulse Resp B/P Pulse Ox O2 Delivery O2 Flow Rate FiO2 07/04/16 16:57 93 15 134/86 98 Nasal Cannula 2 07/04/16 16:15 36.9 Additional Information: Gen.: Patient sitting comfortably in bed in no acute distress HEENT: Conjunctiva normal, PERRLA, no blood in oropharynx Cardio: Regular rate and rhythm Respiratory: CTA bilaterally Abdomen: Mild diffuse tenderness in the lower central abdomen with palpation GI: Blood abdomen and inside of thighs and on the bed Extremities: No edema, no weakness noted Psych: Appropriate mood and affect Neuro: Patient sensation intact throughout Lab and Diagnostics Result Diagram: 07/04/16 1560 Assessment & Plan Assessment 68-year-old male with post-polypectomy bleeding is currently stable in the emergency department awaiting admission. Bleeding is likely due to polypectomy although gastric or duodenal ulcer cannot be ruled out. Problem list: Acute GI bleed likely secondary to polypectomy versus gastric ulcers Plan: Patient will be admitted by hospitalist team. Plan overnight is to start GoLYTELY. As patient previously developed hives, should this happen again, we will switch to magnesium citrate. Patient should be monitored overnight in the PCC or CCU with trending H&H. If patient becomes unstable we will perform an emergency EGD. The patient stable throughout the night EGD and colonoscopy tomorrow morning. I saw and examined the patient with the resident and agreement with the above. Problems: Issa Dsouza DO July 04, 2016 17:41 Tan Cuello MD July 06, 2016 07:50 Tan Cuello MD July 06, 2016 07:50
[2016-07-04] MEDS ORDERED: Ondansetron 2 mg/mL 2 mL Inj IVPUSH PRN (18:10)
[2016-07-04] MEDS ORDERED: Alum-Mag Hydrox-Simeth 30 mL Suspension PO PRN (18:10)
[2016-07-04] MEDS ORDERED: Polyethylene Glycol (PEG) 17 Gm Powder PO PRN (18:10)
--- NOTE | 2016-07-04 18:20 | PCM.HPMED ---
Subjective Date of Service July 04, 2016 Primary Provider: Admitting Physician: Primary Care Physician: Ashwin Abdul DO Attending Physician: Admit Status: From the Emergency Department, Full Admit, Admit to [facility] Team, [facility] Telemetry Chief Complaint: Recurrent rectal bleeding History of Present Illness: This is a 76-year-old gentleman who was admitted June 05 to July 03 for rectal bleeding. He underwent a colonoscopy revealing internal hemorrhoids with incidental finding of a polyp. The polyp was removed. The patient did well until this afternoon. After going to work 1:30 he developed a feeling of rectal urgency followed by bright red blood per rectum. He had numerous episodes of passing bright red blood. He became somewhat lightheaded but had no chest pain. Some diaphoresis but no nausea. Buttocks were called and he was transported by EMS to the emergency department. There he was given 1 L of saline following 1 L in route. His initial hematocrit was normal. His ongoing red blood oozing from the rectum. He denies any nausea or abdominal pain. The patient was seen by gastroenterology and will undergo endoscopy tonight after placement of an NG tube which they had requested or anesthesia had requested. The patient will then be prepped for colonoscopy to see if there is any active bleeding from his polypectomy site or the hemorrhoids. The patient appears to be having a relatively large volume bleed from the amount of blood in the bed and what he describes. He used to be on Cymbalta but stopped this in March. She denies any dyspnea or orthopnea or pedal edema. No history of rectal or known gastrointestinal bleeds. Review of Systems: No chest pain, palpitations or shortness of breath. No abdominal pain. She did feel transiently lightheaded but this is improved. Also reviewed and otherwise negative except as noted in history of present illness. Allergies Coded Allergies: Sulfa (Sulfonamide Antibiotics) (Verified Allergy, Severe, Unknown, ) aspirin (Verified Allergy, Severe, Hives, 02/08/16) Penicillins (Unverified Allergy, Intermediate, 02/08/16) Uncoded Allergies: "Binders" used in medications (Vits) (Adverse Reaction, Severe, Hives, 02/07) NSAID's (Adverse Reaction, Intermediate, Hives (May be due to 'Binders'), 02/08/16) Home Medications Glipizide ER (Glipizide ER) 2.5 Mg Tab.er.24 2.5 MG PO DAILY Lisinopril (Lisinopril) 5 Mg Tablet 5 MG PO DAILY Metoprolol Tartrate (Metoprolol Tartrate) 25 Mg Tablet 25 MG PO BID PMH 1. Recent admit for rectal bleeding with incidental finding of polyp , followed by polypectomy as well as internal hemorrhoids. 2. PTH with history of TURP 2 3. Essential hypertension 4. Diabetes mellitus 2, ita-oysfwee-hbtkffiqy Surgical History TURP 2 Colonoscopy 2 with the latest as noted yesterday 1 polyp and polypectomy Family History Negative for rectal bleed Social History Occupation: Works at the [employer] Hx Alcohol Use: Yes Hx Substance Use: No Hx Tobacco Use: No Smoking Status: Never Smoker Living Arrangement: with Family Exam Vital Signs Vital Sign - Last Date Time Temp Pulse Resp B/P Pulse Ox O2 Delivery O2 Flow Rate FiO2 07/04/16 17:51 96 21 131/76 98 Nasal Cannula 2 07/04/16 16:15 36.9 Exam Oriented 3. No distress. Fluent speech. Normal affect. Normal skull. Normal nose and ears. Anicteric sclera, symmetric pupils Oropharynx is unremarkable, no facial droop. Neck is supple, normal thyroid. No adenopathy. Lungs are clear, normal effort rate. Heart is regular without murmur gallop or rub. Abdomen soft, nondistended or tender. Extremities are free of pedal edema. Good radial and pedal pulses. Skin is free of rash, lesions. No petechiae or ecchymosis. Joints are grossly normal. Cranial nerves are grossly normal. Motor strength is normal in all extremities. Normal muscular tone. The patient does have bright red blood in his groin in the hospital bed. Lab and Diagnostics Result Diagram: 07/04/16 1730 07/04/16 1650 Assessment & Plan 1. Rectal bleeding, POA. The patient is nothing by mouth. We will start a PPI drip and pursue endoscopy tonight. If negative: Probable colonoscopy tomorrow. Every 4 hours hematocrits with blood transfusion as needed. No DVT prophylaxis other than mechanical 2. Mild acute blood loss anemia, POA. The plan is as above. The patient's token screen for blood. 3. Essential hypertension, POA. Hold medications and follow clinically. 4. Diarrhea as well as 2, afz-puskjxa-axbtfskro, POA. Correctional lispro every 6 hours. Patient is full resuscitation Inpatient status with expected length of stable reduction meds. Resuscitation Status: CPR: Attempt Resuscitation Time spent 40 minutes Tru Cruz MD July 04, 2016 18:20
[2016-07-04] MEDS ORDERED: PEG/Electrolytes 4,000 mL Solution PO ONE (18:30)
[2016-07-04] MEDS ORDERED: Pantoprazole Inj 80 MG in 0.9% Sodium Chloride 100 ML IV ONE (18:45)
[2016-07-04] MEDS: 0.9% Sodium Chloride 250 ML IV SCH ×2 (19:15→22:14)
--- NOTE | 2016-07-04 20:09 | NUR ---
Admission Pt admitted from ED. Pt had a syncopal episode in the elevator coming to floor. Able to talk and alert and orientated when up to floor. BP systolic in the 80's, pt skin diaphoretic and hot. Pt placed on MP30. SR 80's according to orthodontic laboratory technician. Two 1L NS bags given, provider in the room giving orders. Blood hung at 1956, VSS, current BP 118/60. Continue to monitor
[2016-07-04] MEDS ORDERED: Lactated Ringer's 1,000 ML IV ONE (20:51)
--- NOTE | 2016-07-04 20:54 | PCM.ENDEGD ---
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 Scope introduced esophagus. Esophagus showed normal shiny whitish mucosa consistent with squamous cell component. Z line was not intact at 40 cm from the incisors. There was a 2 cm hiatal hernia. Also nonobstructing Schatzki's ring noted. Furthermore salmon- colored mucosa consistent with Hanson's esophagus was noted. The length was about 3-4 cm. Ulcer nodule mass noted. The scope further advanced to the stomach. Stomach showed normal shiny mucosa with normal appearing rugae folds without any ulcer mass erosion. However in the antrum, few small clean-based erosions noted. Cardia fundus body antrum pylorus were all visualized. Retroflexion was done. Stomach was easily inflated and deflatable using air. Scope further events to the distal duodenum. Duodenal bulb revealed few small duodenal erosions noted. The rest of the Duodenum revealed normal villous structures with normal appearing folds without any mass ulcer erosion. 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 Patient had allergic reaction to GoLYTELY. Presedation Assessment Risks and Benefits Informed consent was obtained from the patient after all risks and benefits including but not limited to drug reaction, infection, pain, bleeding, perforation, as well as alternatives were discussed. Patient monitoring Continuous pulse oximetry, cardiac monitoring, blood pressure monitoring, IV access, and oxygen at 2L per nasal cannula. Complications There were no periprocedural complications identified. Post Procedure Plan Post Procedure Recommendations 1. Restrict activities today. 2. Resume normal activities in the morning. 3. Resume medications. 4. GERD behavioral modification: - Avoid fatty, acidic, spicy, large meals - Do not lie down after meals - Do not eat or drink anything for at least 2 1/2 hours before going to bed at night - Discontinue tobacco and alcohol - Decrease or avoid caffeine - Avoid chocolate and mints - Decrease weight - Avoid aspirin and non steroidal anti-inflammatory agents (NSAID) such as Aleve, Advil, Mobic, Naproxen, Ibuprofen, etc 5. Add proton pump inhibitor. Take 30 minutes before 1st meal of the day. 6. Patient informed of normal post procedure side effects as bloating, drowsiness, blood streaking in the stool 7. If gastric biopsy reveal H.pylori, continue with appropriate treatment 8. If small bowel biopsy reveals celiac, continue with appropriate treatment 9. Please don't hesitate to call me with any questions Tan Cuello MD July 04, 2016 20:54
--- NOTE | 2016-07-04 21:30 | PCM.HPANE ---
Patient Data Surgeon Admitting Provider:Tru Cruz MD Attending Provider:Tru Cruz MD Primary Care Physician:Ashwin Abdul DO Other Provider: Reason for Visit Gi Bleed Ht/WT & BMI Height (Feet): 6 Height (Inches): 1 Weight (Kilograms): 112 Body Mass Index Allergies Coded Allergies: Sulfa (Sulfonamide Antibiotics) (Verified Allergy, Severe, Unknown, ) aspirin (Verified Allergy, Severe, Hives, 02/08/16) Penicillins (Unverified Allergy, Intermediate, 02/08/16) Uncoded Allergies: "Binders" used in medications (Vits) (Adverse Reaction, Severe, Hives, 02/07) NSAID's (Adverse Reaction, Intermediate, Hives (May be due to 'Binders'), 02/08/16) Past Anesthesia History Anesthesia History: Denies:: Anesthesia Reactions Diabetes History Hx Diabetes?: Yes MRSA MRSA: No Medications Hypertension Medication: Yes Home Meds Incl Beta Tiara: Yes Date Beta Tiara Taken: July 04, 2016 Time Beta Tiara Taken: 08:00 Active Scripts Metoprolol Tartrate 25 Mg [id number] Mg PO BID 14 Days Prov:Ivy Johnson DO 07/03/16 Reported Medications Lisinopril 5 Mg Tablet5 Mg PO DAILY #90 01/04/16 Glipizide ER 2.5 Mg Tab.er.242.5 Mg PO DAILY #90 01/04/16 Discontinued Scripts Metoprolol Tartrate 50 Mg [id number] Mg PO BID 60 Days Prov:Cristian Solis MD 01/06/16 Rivaroxaban (Xarelto)10 Mg [id number] Mg PO DAILY@17 #30 TABLET Prov:Cristian Solis MD 01/06/16 History History of ENT Problems?: Yes HEENT History: Positive for:: Sinus Problem Denies:: Abnormal Airway Cataracts Difficult Intubation Dysphagia Glaucoma Hearing Problem TMJ Denture Type: None Teeth Condition: Within Normal Limits Hx of Heart Problems?: Yes Cardiovascular History: Positive for:: Cardiac Surgery (ABLATION 2015) Hypertension Irregular Heartbeat (Atrial flutter) Denies:: Chest Pain Congestive Heart Failure Edema Heart Murmur Pacemaker Thrombophlebitis Hx of Respiratory Problem?: No Respiratory History: Positive for:: Pneumonia Denies:: Asthma COPD Chest Surgery Dyspnea Emphysema Hemoptysis Tuberculosis Hx Neurologic Problems?: No Neurological History: Denies:: Alzheimer's Disease CVA Dementia Dizziness Headaches Parkinson's Disease Seizures Hx of GI Problems?: No Hx of Problems?: Yes Genitourinary History: Positive for:: Kidney Stones Urinary Tract Infection Denies:: HX of Hemodialysis HX of Peritoneal Dialysis: No Male Hx: Positive for:: Prostate Problems (S/P TURP) Denies:: Scrotal Mass Testicular Surgery Skin History: Denies:: History Skin Disorders? Pressure Ulcers Hx Musculoskeletal Problems?: Yes Musculoskeletal History: Positive for:: Back Injury (flares up occasional) Denies:: Joint Replacement Musculoskeletal Trauma Hx of Psycho/Social Problems?: No Hx Surgeries?: Yes (tURP) Hx Any Other Health Problems?: Yes Other History: Positive for:: Hospitalization Denies:: Cancer Endocrine Disease Thyroid Disease History Blood Transfusions: Denies:: Blood Transfuse Reaction Blood Transfusions Hx Diabetes: Yes Occupation: Works at the [employer] Hx Alcohol Use: YesHx Substance Use: No Smoking Status: Never Smoker Have You Smoked inLast 12 mo: No Stop/Bang B- Body Mass Index > 35 kg/m2: No A- Age over 50: Yes N- Neck Large Circumference: Yes G- Gender Male: Yes Risk Assessment Category Category 1A: Patient has history of documented sleep apnea, and HAS NOT received any narcotic, sedative or anesthesia administration during this stay. Category 1B: Patient has history of documented sleep apnea, and HAS received any narcotic , sedative or anesthesia administration during this stay Category 2: Patient has SUSPECTED Obstructive Sleep Apnea, and HAS received any narcotic , sedative or anesthesia administration during this stay. Category 3: Patient has SUSPECTED Obstructive Sleep Apnea and HAS NOT received narcotic, sedative or anesthesia administration during this stay. Category 4: Outpatient in Procedural Areas with known sleep apnea or who screen positive for High Risk via the STOP/BANG questionnaire. Exam Exam Vital Signs Vital Signs Date Time Temp Pulse Resp B/P Pulse Ox O2 Delivery O2 Flow Rate FiO2 07/04/16 20:13 36.8 86 20 118/65 07/04/16 19:58 36.8 88 18 118/60 98 Non-Rebreather 07/04/16 19:58 36.8 88 18 118/60 07/04/16 19:23 36.5 90 15 101/64 97 Room Air 07/04/16 18:22 113 12 104/56 96 Room Air 07/04/16 17:51 96 21 131/76 98 Nasal Cannula 2 07/04/16 16:57 93 15 134/86 98 Nasal Cannula 2 07/04/16 16:15 36.9 103 21 131/79 98 07/04/16 16:15 36.9 102 13 131/79 97 Nasal Cannula 2 General Appearance: Alert, Oriented X3, Cooperative HEENT/AIRWAY: MP 2 Lungs: Clear to Auscultation Heart: Exam Unremarkable Meds/Labs/Diagnostics Admission Meds Current Medications Sodium Chloride 1,000 ml @ 0 mls/hr Q0M ONCE IV Last administered on 07/04/16 16:56; Start 07/04/16 at 16:33; Stop 07/04/16 at 16:36; Status DC Pantoprazole 80 mg/Sodium Chloride 120 ml @ 480 mls/hr ONCE ONCE IV Last administered on 07/04/16 20:18; Start 07/04/16 at 18:45; Stop 07/04/16 at 18:59; Status DC Sodium Chloride (Normal Saline) 250 ml @ 10 mls/hr Q24H IV Last administered on 07/04/16 19:15; Start 07/04/16 at 19:15 Labs Test 07/04/16 16:50 07/04/16 19:37 White Blood Count 7.3th/mm3 (3.8-10.1) Red Blood Count 4.28mil/mm3 (4.40-5.80) Mean Corpuscular Volume 86.4fL (81-100) Mean Corpuscular Hemoglobin 29.2pg (27.0-35.0) Mean Corpuscular Hemoglobin Concent 33.8% (32.0-37.0) Red Cell Distribution Width 13.0% (12.3-15.4) Platelet Count 229bil/L (150-400) Neutrophils (%) (Auto) 66.1% (40-74) Lymphocytes (%) (Auto) 20.8% (14-46) Monocytes (%) (Auto) 10.9% (4-12) Eosinophils (%) (Auto) 1.6% (0-5) Basophils (%) (Auto) 0.5% (0-3) Prothrombin Time 10.8sec (8.1-12.5) Prothromb Time International Ratio 1.01ratio Sodium Level 138mEq/L (134-144) Potassium Level 3.7mEq/L (3.5-5.2) Chloride Level 107mEq/L (97-108) Carbon Dioxide Level 18mmol/L (18-29) Blood Urea Nitrogen 16mg/dL (8-27) Creatinine 1.11mg/dL (0.76-1.27) Estimat Glomerular Filtration Rate 69mL/min (>59) Glucose Level 124mg/dL (60-99) Calcium Level 8.0mg/dL (8.5-10.1) Magnesium Level 1.9mg/dL (1.6-2.6) Total Bilirubin 0.6mg/dL (0.0-1.2) Aspartate Amino Transf (AST/SGOT) 16U/L (0-50) Alanine Aminotransferase (ALT/SGPT) 17U/L (0-44) Alkaline Phosphatase 46U/L (25-160) Troponin T < 0.010ug/L (0.0-0.011) Total Protein 5.3g/dL (6.4-8.4) Albumin 3.1g/dL (3.4-5.0) Hold Guo Top Tube Received (Received) Hemoglobin 10.4g/dL (13.8-17.2) Hematocrit 31.7% (41.0-50.0) Plan Impression Patient chart reviewed, patient interviewed and anesthestic plan with risks, benefits, and alternatives discussed, and informed consent obtained. ASA Physical Status: ASA3 Severe Disease Anesthetic Plan: GA Bene/Risks/Altern/Consents: Yes HP Complete Prior to Induction: Yes Brent Mendoza DO July 04, 2016 20:26
--- NOTE | 2016-07-04 21:31 | PCM.ANEP1 ---
Post Anesthesia Phase 1 PACU Phase 1 Assessment Date of Service: July 04, 2016 Vital Signs Vital Signs Date Time Temp Pulse Resp B/P Pulse Ox O2 Delivery O2 Flow Rate FiO2 07/04/16 20:42 85 16 120/72 99 Room Air 07/04/16 20:13 36.8 86 20 118/65 07/04/16 19:58 36.8 88 18 118/60 98 Non-Rebreather 07/04/16 19:58 36.8 88 18 118/60 07/04/16 19:39 87 07/04/16 19:23 36.5 90 15 101/64 97 Room Air 07/04/16 18:22 113 12 104/56 96 Room Air 07/04/16 17:51 96 21 131/76 98 Nasal Cannula 2 07/04/16 16:57 93 15 134/86 98 Nasal Cannula 2 07/04/16 16:15 36.9 103 21 131/79 98 07/04/16 16:15 36.9 102 13 131/79 97 Nasal Cannula 2 Anesthetic Administered: GA Level of Alertness: Awake, talking DAVEY's with Equal Strength: Yes Pain: No Nausea or Vomiting: No Cardiovascular Function and Hy: Yes Oxygen Delivery: Room Air Lungs: Clear to Auscultation Complications: No Follow up Care: No Patient Instructions Provided: Yes Brent Mendoza DO July 04, 2016 21:31
[2016-07-04] MEDS: Pantoprazole Inj 80 MG in 0.9% Sodium Chloride 80 ML IV SCH (21:54)
[2016-07-05 00:28] VITALS: BP 134/78; PULSE 84; RESP 13
[2016-07-05 04:00] VITALS: BP 113/71; PULSE 82; RESP 17; O2SAT 96
[2016-07-05] MEDS: Pantoprazole Inj 80 MG in 0.9% Sodium Chloride 80 ML IV SCH (05:00)
--- NOTE | 2016-07-05 05:03 | NUR ---
Endo/B-prep Went to Endo , nothing significantly bleeding was found , notes some areas of interest to biopsy in the future. Received 2 units of PRBC , follow up HCT 35.8 Will be following up with Colonoscopy in the AM, Pt has not had episodes of bleeding this evening . has no C/O pain, A&O x3 , using call light appropriately, ' Mag Citrate bowel prep, had 3 BM's this shift of bright red liquid stool . On room air, Tele SR 80's with activity spikes into the low 100.
[2016-07-05 07:30] VITALS: BP 135/81; PULSE 95; RESP 16; O2SAT 99
[2016-07-05 07:40] VITALS: BP 125/71; PULSE 81; RESP 16; O2SAT 98
[2016-07-05] MEDS ORDERED: Ondansetron 2 mg/mL 2 mL Inj IVPUSH PRN (07:40)
[2016-07-05] MEDS ORDERED: Lactated Ringer's 500 ML IV PRN (07:40)
[2016-07-05] MEDS ORDERED: HYDROmorphone 1 mg/mL Inj IVPUSH PRN (07:40)
[2016-07-05] MEDS ORDERED: Dexamethasone 4 mg/mL Inj IVPUSH PRN (07:40)
[2016-07-05] MEDS ORDERED: fentaNYL-PF 50 mCg/mL 2 mL Inj IVPUSH PRN (07:40)
[2016-07-05] MEDS ORDERED: MetoCLOpramide 5 mg/mL 2 mL Inj IVPUSH PRN (07:40)
[2016-07-05] MEDS ORDERED: Labetalol 5 mg/mL 4 mL Inj IV PRN (07:40)
[2016-07-05] MEDS ORDERED: EPHEDrine Sulfate 50 mg/mL Inj IVPUSH PRN (07:40)
[2016-07-05] MEDS ORDERED: Phenylephrine 10,000 mCg/mL Inj IVPUSH PRN (07:40)
[2016-07-05] MEDS ORDERED: hydrALAZINE 20 mg/mL Inj IVPUSH PRN (07:40)
--- NOTE | 2016-07-05 07:51 | PCM.HPANE ---
Patient Data Date of Service: July 05, 2016 Surgeon Admitting Provider:Tru Cruz MD Attending Provider:Tru Cruz MD Primary Care Physician:Ashwin Abdul DO Other Provider: Reason for Visit Gi Bleed Ht/WT & BMI Height (Feet): 6 Height (Inches): 1.00 Weight (Kilograms): 112.000 Body Mass Index 32.72 Allergies Coded Allergies: Sulfa (Sulfonamide Antibiotics) (Verified Allergy, Severe, Unknown, ) aspirin (Verified Allergy, Severe, Hives, 02/08/16) Penicillins (Unverified Allergy, Intermediate, 02/08/16) Uncoded Allergies: "Binders" used in medications (Vits) (Adverse Reaction, Severe, Hives, 02/07) NSAID's (Adverse Reaction, Intermediate, Hives (May be due to 'Binders'), 02/08/16) Past Anesthesia History Anesthesia History: Denies:: Abnormal Airway, Anesthesia Reactions, Difficult Intubation, Fam Anesthesia Reaction, Fam Malignant Hypertherm, Malignant Hyperthermia Diabetes History Hx Diabetes?: Yes MRSA MRSA: No Medications Hypertension Medication: Yes Home Meds Incl Beta Tiara: Yes Date Beta Tiara Taken: July 04, 2016 Time Beta Tiara Taken: 08:00 Active Scripts Metoprolol Tartrate 25 Mg [id number] Mg PO BID 14 Days Prov:Ivy Johnson DO 07/03/16 Reported Medications Lisinopril 5 Mg Tablet5 Mg PO DAILY #90 01/04/16 Glipizide ER 2.5 Mg Tab.er.242.5 Mg PO DAILY #90 01/04/16 Discontinued Scripts Metoprolol Tartrate 50 Mg Hugytt17 Mg PO BID 60 Days Prov:Cristian Solis MD 01/06/16 Rivaroxaban (Xarelto)10 Mg Lyvgxk30 Mg PO DAILY@17 #30 TABLET Prov:Cristian Solis MD 01/06/16 History History of ENT Problems?: Yes HEENT History: Positive for:: Sinus Problem Denies:: Abnormal Airway Cataracts Difficult Intubation Dysphagia Glaucoma Hearing Problem TMJ Denture Type: None Teeth Condition: Within Normal Limits Hx of Heart Problems?: Yes Cardiovascular History: Positive for:: Cardiac Surgery (ABLATION 2015) Hypertension Irregular Heartbeat (Atrial flutter) Denies:: AICD Atrial Fibrillation Chest Pain Congestive Heart Failure Edema Heart Murmur Pacemaker Thrombophlebitis Valvular Heart Disease Hx of Respiratory Problem?: No Respiratory History: Positive for:: Pneumonia Denies:: Asthma COPD Chest Surgery Cough Dyspnea Emphysema Hemoptysis Tuberculosis Hx Neurologic Problems?: No Neurological History: Denies:: Alzheimer's Disease CVA Dementia Dizziness Headaches Parkinson's Disease Seizures Hx of GI Problems?: No Hx of Problems?: Yes Genitourinary History: Positive for:: Kidney Stones Urinary Tract Infection Denies:: HX of Hemodialysis HX of Peritoneal Dialysis: No Male Hx: Positive for:: Prostate Problems (S/P TURP) Denies:: Scrotal Mass Testicular Surgery Skin History: Denies:: History Skin Disorders? Pressure Ulcers Hx Musculoskeletal Problems?: Yes Musculoskeletal History: Positive for:: Back Injury (flares up occasional) Denies:: Fibromyalgia Joint Replacement Musculoskeletal Trauma Hx of Psycho/Social Problems?: No Psycho Social History: Denies:: Anxiety Hx Depression Hx Surgeries?: Yes (tURP) Hx Any Other Health Problems?: Yes Other History: Positive for:: Hospitalization Denies:: Cancer Endocrine Disease Thyroid Disease History Blood Transfusions: Denies:: Blood Transfuse Reaction Blood Transfusions Hx Diabetes: Yes Occupation: Works at the [employer] di Hx Alcohol Use: YesHx Substance Use: No Smoking Status: Never Smoker Have You Smoked inLast 12 mo: No Stop/Bang Treated for Sleep Apnea?: No Do You Have a CPAP Machine?: No S-Snoring: Do You Snore Loudly: Yes T-Tired: feel tired, fatigued: No O-Obsered: Observed not breath: No P-Blood Pressure: treated: Yes B- Body Mass Index > 35 kg/m2: No A- Age over 50: Yes N- Neck Large Circumference: Yes G- Gender Male: Yes MARCUS Total Score: 4 MARCUS Risk Assessment: High Risk, =/>3 Yes MARCUS Category 2: Yes Risk Assessment Category Category 1A: Patient has history of documented sleep apnea, and HAS NOT received any narcotic, sedative or anesthesia administration during this stay. Category 1B: Patient has history of documented sleep apnea, and HAS received any narcotic , sedative or anesthesia administration during this stay Category 2: Patient has SUSPECTED Obstructive Sleep Apnea, and HAS received any narcotic , sedative or anesthesia administration during this stay. Category 3: Patient has SUSPECTED Obstructive Sleep Apnea and HAS NOT received narcotic, sedative or anesthesia administration during this stay. Category 4: Outpatient in Procedural Areas with known sleep apnea or who screen positive for High Risk via the STOP/BANG questionnaire. Exam Exam Vital Signs Vital Signs Date Time Temp Pulse Resp B/P Pulse Ox O2 Delivery O2 Flow Rate FiO2 07/05/16 04:00 82 17 113/71 96 07/05/16 00:28 36.7 84 13 134/78 General Appearance: Alert, Oriented X3, Cooperative HEENT/AIRWAY: MP 2 Lungs: Clear to Auscultation Heart: Exam Unremarkable Meds/Labs/Diagnostics Admission Meds Current Medications Sodium Chloride 1,000 ml @ 0 mls/hr Q0M ONCE IV Last administered on 07/04/16 16:56; Start 07/04/16 at 16:33; Stop 07/04/16 at 16:36; Status DC Pantoprazole 80 mg/Sodium Chloride 120 ml @ 480 mls/hr ONCE ONCE IV Last administered on 07/04/16 20:18; Start 07/04/16 at 18:45; Stop 07/04/16 at 18:59; Status DC Pantoprazole 80 mg/Sodium Chloride 100 ml @ 10 mls/hr Q10H IV Last administered on 07/04/16 21:54; Start 07/04/16 at 19:00 Sodium Chloride 250 ml @ 10 mls/hr Q24H IV Last administered on 07/04/16 22:14 ; Start 07/04/16 at 19:15 Lactated Ringer's (Lr) 1,000 ml @ ud STK-MED ONCE IV Last administered on 20:51; Start 07/04/16 at 20:51; Stop 07/04/16 at 20:52; Status DC Labs Test 07/04/16 16:50 07/04/16 19:37 07/05/16 05:50 White Blood Count 7.3th/mm3 (3.8-10.1) Red Blood Count 4.28mil/mm3 (4.40-5.80) Mean Corpuscular Volume 86.4fL (81-100) Mean Corpuscular Hemoglobin 29.2pg (27.0-35.0) Mean Corpuscular Hemoglobin Concent 33.8% (32.0-37.0) Red Cell Distribution Width 13.0% (12.3-15.4) Platelet Count 229bil/L (150-400) Neutrophils (%) (Auto) 66.1% (40-74) Lymphocytes (%) (Auto) 20.8% (14-46) Monocytes (%) (Auto) 10.9% (4-12) Eosinophils (%) (Auto) 1.6% (0-5) Basophils (%) (Auto) 0.5% (0-3) Prothrombin Time 10.8sec (8.1-12.5) Prothromb Time International Ratio 1.01ratio Sodium Level 138mEq/L (134-144) Potassium Level 3.7mEq/L (3.5-5.2) Chloride Level 107mEq/L (97-108) Carbon Dioxide Level 18mmol/L (18-29) Blood Urea Nitrogen 16mg/dL (8-27) Creatinine 1.11mg/dL (0.76-1.27) Estimat Glomerular Filtration Rate 69mL/min (>59) Glucose Level 124mg/dL (60-99) Calcium Level 8.0mg/dL (8.5-10.1) Magnesium Level 1.9mg/dL (1.6-2.6) Total Bilirubin 0.6mg/dL (0.0-1.2) Aspartate Amino Transf (AST/SGOT) 16U/L (0-50) Alanine Aminotransferase (ALT/SGPT) 17U/L (0-44) Alkaline Phosphatase 46U/L (25-160) Troponin T < 0.010ug/L (0.0-0.011) Total Protein 5.3g/dL (6.4-8.4) Albumin 3.1g/dL (3.4-5.0) Hold Guo Top Tube Received (Received) Hemoglobin 10.4g/dL (13.8-17.2) Hematocrit 34.9% (41.0-50.0) Plan Impression Patient chart reviewed, patient interviewed and anesthestic plan with risks, benefits, and alternatives discussed, and informed consent obtained. NPO per Anesth. Guidelines: Yes ASA Physical Status: ASA2 Mod Systemic Disease Anesthetic Plan: GA Bene/Risks/Altern/Consents: Yes HP Complete Prior to Induction: Yes Colby Cisneros MD July 05, 2016 07:51
[2016-07-05] MEDS: Lactated Ringer's 1,000 ML IV SCH ×2 (08:00→08:17)
--- NOTE | 2016-07-05 08:24 | PCM.PNMED ---
Subjective Date of Service July 05, 2016 Subjective He is doing better this morning. No hypotension or confusion. He underwent endoscopy with her source of bleeding. He is been doing a probable carotid and has not had blood per rectum. No abdominal pain. No chest pain palpitations or dyspnea. No recurrence Exam Vital Signs Vital Sign - Last Date Time Temp Pulse Resp B/P Pulse Ox O2 Delivery O2 Flow Rate FiO2 07/05/16 07:40 81 16 125/71 98 Room Air 07/05/16 00:28 36.7 07/04/16 17:51 2 Intake and Output 07/04/16 07/04/16 07/05/16 Cumulative From/Thru 15:00 23:00 07:00 07/04/16 16:15 - 07/05/16 06:31 Intake Total 1500 ml 1726 ml 3226 ml Output Total 0 ml 550 ml 550 ml Balance 1500 ml 1176 ml 2676 ml Intake IV Total 1500 ml 1726 ml 3226 ml Output Urine Total 0 ml 550 ml 550 ml Exam Alert and oriented -3, no distress. Fluent speech Anicteric sclera. Lungs are clear with normal rate and effort Heart is regular without murmur gallop or rub Abdomen soft nontender, flat Extremities are free of edema. Skin is free of rash or lesions. IVs and Medications Medications Reviewed: Medications were reviewed in detail Lab and Diagnostics Result Diagram: 07/05/16 0550 07/04/16 1650 Assessment & Plan 1. Rectal bleeding, POA. Patient will undergo colonoscopy to review the polypectomy sites are or evidence of ongoing bleeding or need for clipping. 2. Mild acute blood loss anemia, POA. The patient was given 2 units of blood last night when he developed acute hypotension and confusion. His hematocrit remained stable overnight. We will follow serial hematocrits. 3. Essential hypertension, POA. Hold medications and follow clinically. Stable, no change to plans. This is stable. 4. Diarrhea as well as 2, fhd-ysibvya-lchufxrtj, POA. Correctional lispro every 6 hours. Patient is full resuscitation Inpatient status with expected length of stable reduction meds. Resuscitation Status: CPR: Attempt Resuscitation Tru Cruz MD July 05, 2016 08:24
--- NOTE | 2016-07-05 08:26 | PCM.ENDCOL ---
Colonoscopy Date of Service: July 05, 2016 Physician Tru Cruz MD Pre Procedure Diagnosis: Rectal bleeding Post Procedure Dx & Findings: Post polypectomy bleed versus diverticular bleed polyps hemorrhoids Procedure Colonoscopy PROCEDURE IN DETAIL: Prep poor After unremarkable rectal examination the Olympus video colonoscope was inserted patient's anal canal and was advanced to cecum. Landmarks were identified including the ileocecal valve and appendiceal orifice. Scope further events the terminal ileum. We advanced about 5-6 cm and normal villous structures without any ulcer mass erosion noted. No blood noted. Scope was withdrawn systematically. Visualized colonic mucosa showed healthy shiny mucosa with normal healthy-appearing vasculature. In the ascending colon, there was a clip on the polypectomy site. The base was little broad. Right next to it there was a red spot which could be a blood vessel therefore additional clips deployed. First clip deployment, we saw flash of small amount of fresh blood coming out. Then we deployed another clip and completely closed off the mucosal defect. 2 mL epinephrine injected. Complete hemostasis achieved. Starting in the descending colon, patient had multiple diverticuli small to large. Each individual diverticuli were inspected and no clot or blood noted. Patient also had less than 5 mm polyps in the transverse or ascending colon. These were not taken out. In the rectum retroflexion was done which showed hemorrhoids. Anal canal was inspected carefully on the way out and hemorrhoids noted. Impression Post polypectomy bleed status post successful hemostasis versus diverticular bleed. Multiple diverticuli Polyp in the transverse or ascending colon. Hemorrhoids Recommendation Repeat colonoscopy through [address] Nichols. Diverticular diet Follow hemoglobin for the next 24 hours and if stable with discharge Please start him on Prilosec 40 mg once a day. He also needs an upper endoscopy while doing the colonoscopy for possible Hanson's esophagus. Presedation Assessment Risks and Benefits Informed consent was obtained from the patient after all risks and benefits including but not limited to drug reaction, infection, pain, bleeding, perforation, as well as alternatives were discussed. Patient monitoring Continuous pulse oximetry, cardiac monitoring, blood pressure monitoring, IV access, and oxygen at 2L per nasal cannula. Complications There were no periprocedural complications identified. Post Procedure Plan Post Procedure Recommendations 1. Restrict activities today. 2. Resume normal activities in the morning. 3. Resume medications. 4. Patient informed of normal post procedure side effects as bloating, drowsiness, blood streaking in the stool. 5. average risk CRCS. If colon polyps come back as: -Hyperplastic- can repeat colonoscopy in 10 years -Tubular adenoma- repeat colonoscopy in 5 years -Tubulovillous/villous adenoma- repeat colonoscopy in 3 years -If any dysplasia- return to clinic as soon as possible 6. Please don't hesitate to call me with any questions. Tan Cuello MD July 05, 2016 08:26
[2016-07-05 08:45] VITALS: BP 127/61; PULSE 68; RESP 12; O2SAT 99
--- NOTE | 2016-07-05 09:49 | PCM.PNMED ---
Subjective Date of Service July 05, 2016 Subjective Patient wants a colonoscopy this morning with resultant additional clips placed around post polypectomy site. Complete hemostasis was achieved. Upper endoscopy from last night showed only erosive changes in the duodenum and gastric antrum. Patient was transfused 2 units of PRBCs overnight due to drop in hemoglobin. This morning patient states that he is feeling much better with no complaint of current bleeding, although it has only been a couple hours since his colonoscopy. Patient denies lightheadedness, chest pain, dizziness, nausea, vomiting, abdominal pain, rectal pain, or fever/chills. Exam Vital Signs Vital Sign - Last Date Time Temp Pulse Resp B/P Pulse Ox O2 Delivery O2 Flow Rate FiO2 07/05/16 07:40 81 16 125/71 98 Room Air 07/05/16 00:28 36.7 07/04/16 17:51 2 Intake and Output 07/04/16 07/04/16 07/05/16 Cumulative From/Thru 15:00 23:00 07:00 07/04/16 16:15 - 07/05/16 06:31 Intake Total 1500 ml 1726 ml 3226 ml Output Total 0 ml 550 ml 550 ml Balance 1500 ml 1176 ml 2676 ml Intake IV Total 1500 ml 1726 ml 3226 ml Output Urine Total 0 ml 550 ml 550 ml Exam General: Patient is mildly drowsy but awake and conversant HEENT: Conjunctiva are normal; no blood in oropharynx Cardio: Appears to be regular rate and rhythm Respiratory: CTA bilaterally Abdomen: Nontender throughout; hyperactive bowel tones GI: Please see endoscopy and colonoscopy reports Extremities: Mild edema Neuro; sensation intact throughout; CN II through XII intact Psych: Appropriate mood and affect Lab and Diagnostics Result Diagram: 07/05/16 0550 07/04/16 7210 Assessment & Plan 70-year-old male with acute rectal bleed following post polypectomy 2 days ago. Patient has been clipped and adequate hemostasis achieved. Upper endoscopy showed some erosive characteristics in the distal esophagus, stomach, and duodenum. Problem list: Acute post polypectomy GI bleed VS diverticular bleeding Erosive esophagitis/Hanson's esophagus Gastritis with erosive characteristics without bleeding Plan: Patient should be followed today with repeat H&H. Should patient be stable he can be discharged. Restrict activities for today. Recommend diverticular diet ( high fiber low-med fat). Patient follow-up in [address] Nichols for repeat colonoscopy and EGD for evaluation of Hanson's esophagus. Please start patient also Protonix or omeprazole 40 mg daily. We will continue to follow patient while he is here for expect that he should be ready by tomorrow morning, pending any other medical issues. I have seen and examined this patient with Dr. Zavala and agree with above. Thank you for allowing us to participate in the care of this patient. Resuscitation Status: CPR: Attempt Resuscitation Issa Dsouza DO July 05, 2016 09:49 Tan Cuello MD July 06, 2016 07:51
[2016-07-05] MEDS ORDERED: ACET-2605 PO (11:42)
[2016-07-05 12:00] VITALS: BP 131/70; PULSE 77; RESP 10; O2SAT 98
--- NOTE | 2016-07-05 13:01 | NUR ---
Case Management: IMM given and explained to pt and . Trinity ALFONSO RN
--- NOTE | 2016-07-05 13:59 | PCM.ANEP1 ---
Post Anesthesia Phase 1 PACU Phase 1 Assessment Date of Service: July 05, 2016 Vital Signs Vital Signs Date Time Temp Pulse Resp B/P Pulse Ox O2 Delivery O2 Flow Rate FiO2 07/05/16 12:00 77 10 131/70 98 Room Air 07/05/16 08:45 36.5 68 12 127/61 99 Room Air 07/05/16 07:40 81 16 125/71 98 Room Air 07/05/16 07:30 95 16 135/81 99 Room Air Anesthetic Administered: GA Level of Alertness: Awake, talking DAVEY's with Equal Strength: Yes Pain: No Nausea or Vomiting: No Cardiovascular Function and Hy: Yes Oxygen Delivery: Room Air Lungs: Clear to Auscultation Complications: No Follow up Care: No Patient Instructions Provided: Yes Colby Cisneros MD July 05, 2016 13:59
--- NOTE | 2016-07-05 14:01 | PCM.DIMED ---
Discharge Instructions Date of Service July 05, 2016 Dates of Hospitalization July 04, 2016 at 18:13 Discharge Diagnosis Discharge Diagnosis 1. Rectal bleeding, presumed diverticular. Resolved. 2. Hanson's esophagitis, POA. Stable 2. Acute blood loss anemia, POA. Stable. 3. Essential hypertension, POA. Stable. 4. Diabetes mellitus 2, qlm-idmwnuy-wpkffdpsc, POA. Diet No restrictions Activity Limited until seen by PCP Patient Instructions No work for rest of week. Follow-up Provider: Kun Urban MD Follow-up with PCP in: 2 weeks Tru Cruz MD July 05, 2016 14:01
[2016-07-05] MEDS ORDERED: OMEP20TA24 PO (14:02)
--- NOTE | 2016-07-05 14:07 | PCM.DC.MED ---
Discharge Summary Date of Service July 05, 2016 Dates of Hospitalization Date of Hospital Admission July 04, 2016 at 18:13 Date of Discharge: July 05, 2016 Providers: Admitting Physician: Tru Cavazos MD Primary Care Physician: Ashwin Abdul DO Attending Physician: Tru Cavazos MD Diagnosis at Time of Discharge Diagnosis at Time of Discharge 1. Rectal bleeding, presumed diverticular. Resolved. 2. Hanson's esophagitis, POA. Stable 2. Acute blood loss anemia, POA. Stable. 3. Essential hypertension, POA. Stable. 4. Diabetes mellitus 2, oom-feepdei-fhecmmfmd, POA. Consultations Gastroenterology, Dr. Cuello Procedures Invasive Procedures Upper endoscopy on July 04 revealing gastropathy and Hanson's esophagus but no evidence of bleeding Colonoscopy on July 05 revealing mild friability near previous polypectomy clipped with a second clip placed and epinephrine infiltrated. Multiple diverticuli no evidence of a specific area of bleeding. Internal hemorrhoids, no evidence of specific bleeding. Brief History 70 year old male on A-fib s/p ablation and currently takes metoprolol, HTN, TURP 2 and NIDDM presenting the ED due to ongoing rectal bleeding after polypectomy was performed yesterday at [facility]. Patient states that after he was discharged yesterday he did well he will have a small amount of blood in his stool this morning that was dark red. Around 1300 patient developed urgency and had a bowel movement with a large amount of bright red blood mixed with clot. This continued intermittently until the patient presented this afternoon. Patient denies being lightheaded, chest pain, shortness of breath, severe abdominal pain, epigastric pain, blurred vision, or dizziness. Please see prior notes more information on patient's last stay Emergency department patient's H&H was 12.5/37.0. After approximately an hour he dropped to 12.0/35.8. EGD was recommended and patient consented, however he had eaten a small piece of chocolate at noon today and will have to wait as he is currently hemodynamically stable. Discussion was held with patient and anesthesia and should patient become unstable tonight emergency EGD will be performed. Other labs are within normal except for blood sugar of 124 Hospital Course 1. Rectal bleeding, POA. Patient will undergo colonoscopy to review the polypectomy sites are or evidence of ongoing bleeding or need for clipping. The patient was admitted and fluid resuscitated. He had ongoing rectal bleeding noted in the ED and became hypotensive when transferred to the floor. He was given 2 L of saline rapid infusion simultaneously and 2 stat units of packed blood cells. The patient was clinically much improved with these maneuvers and taken for endoscopy which was nonrevealing in terms of an acute bleeding focus. He was noted to have gastropathy, gastric erosions and probable Hanson's esophagitis meriting further follow-up. The next morning after prep he was taken for colonoscopy revealing some friability and blood losing with manipulation of the clip of his previous polypectomy site. A second clip was placed and it was injected with epinephrine. The patient had numerous diverticuli without any clear bleeding and internal hemorrhoids without any clear bleeding. His hematocrit remained stable and there is no further evidence of blood loss. 2. Mild acute blood loss anemia, POA. The patient was given 2 units of blood last night when he developed acute hypotension and confusion. His hematocrit remained stable overnight. We will follow serial hematocrits. As above. After 2 units of packed red blood cells hematocrit remained stable. 3. Essential hypertension, POA. Hold medications and follow clinically. Stable, no change to plans. This is stable. This was clinically stable off medications while in the hospital. 4. Diabetes mellitus 2, zcf-mhoposk-huvplznwq, POA. Correctional lispro every 6 hours. This remained stable on the hospital. Exam Vital Signs (Last) Date Time Temp Pulse Resp B/P Pulse Ox O2 Delivery O2 Flow Rate FiO2 07/05/16 12:00 77 10 131/70 98 Room Air 07/05/16 08:45 36.5 07/04/16 17:51 2 Exam Patient was seen and examined on the day of discharge Test 07/04/16 16:50 07/04/16 19:37 07/05/16 05:50 White Blood Count 7.3th/mm3 (3.8-10.1) Red Blood Count 4.28mil/mm3 (4.40-5.80) Mean Corpuscular Volume 86.4fL (81-100) Mean Corpuscular Hemoglobin 29.2pg (27.0-35.0) Mean Corpuscular Hemoglobin Concent 33.8% (32.0-37.0) Red Cell Distribution Width 13.0% (12.3-15.4) Platelet Count 229bil/L (150-400) Neutrophils (%) (Auto) 66.1% (40-74) Lymphocytes (%) (Auto) 20.8% (14-46) Monocytes (%) (Auto) 10.9% (4-12) Eosinophils (%) (Auto) 1.6% (0-5) Basophils (%) (Auto) 0.5% (0-3) Prothrombin Time 10.8sec (8.1-12.5) Prothromb Time International Ratio 1.01ratio Sodium Level 138mEq/L (134-144) Potassium Level 3.7mEq/L (3.5-5.2) Chloride Level 107mEq/L (97-108) Carbon Dioxide Level 18mmol/L (18-29) Blood Urea Nitrogen 16mg/dL (8-27) Creatinine 1.11mg/dL (0.76-1.27) Estimat Glomerular Filtration Rate 69mL/min (>59) Glucose Level 124mg/dL (60-99) Calcium Level 8.0mg/dL (8.5-10.1) Magnesium Level 1.9mg/dL (1.6-2.6) Total Bilirubin 0.6mg/dL (0.0-1.2) Aspartate Amino Transf (AST/SGOT) 16U/L (0-50) Alanine Aminotransferase (ALT/SGPT) 17U/L (0-44) Alkaline Phosphatase 46U/L (25-160) Troponin T < 0.010ug/L (0.0-0.011) Total Protein 5.3g/dL (6.4-8.4) Albumin 3.1g/dL (3.4-5.0) Hold Guo Top Tube Received (Received) Hemoglobin 10.4g/dL (13.8-17.2) Hematocrit 34.9% (41.0-50.0) Discharge Medications Discharge Medications Glipizide ER (Glipizide ER) 2.5 Mg Tab.er.24 2.5 MG PO DAILY (Reported) Lisinopril (Lisinopril) 5 Mg Tablet 5 MG PO DAILY (Reported) Metoprolol Tartrate (Metoprolol Tartrate) 25 Mg Tablet 25 MG PO BID Prescribed by: ISAAC PRINCE DO Omeprazole Magnesium (Prilosec Otc) 20 Mg Tablet.dr 20 MG PO DAILY Prescribed by: TRU CAVAZOS MD As needed Acetaminophen/Diphenhydramine (Tylenol Pm Ex-Strength Caplet) 500 Mg-25 Mg Tablet 2 EACH PO PRN For Pain (Reported) Followup Plan Disposition: Home Discharge Diet: No restrictions Discharge Activity: Limited until seen by PCP Patient Instructions No work for rest of week. Follow-up Provider: Kun Urban MD Follow-up with PCP in: 2 weeks Time spent 40 minutes Tru Cavazos MD July 05, 2016 14:07
--- NOTE | 2016-07-05 14:59 | NUR ---
Colonoscopy this morning. Up in room independently, no further bleeding noted. Vital signs stable, afebrile, sinus rhythm 1st-degree AVB on tele, no ectopy noted. Denies pain/discomfort, no nausea reported. A/O and in good spirits. Updated by Dr. Cuello this afternoon. States no concerns or questions at this time. SLs X2 discontinued, cannulas intact, sites dressed. Discharge instructions for medications, post-care, and follow-up appointment to patient. Discharging home with .
[2016-07-05] MEDS ORDERED: Ketamine 10 mg/mL 20 mL Inj ONE (15:07)
[2016-07-05] MEDS ORDERED: Propofol 10,000 mCg/mL 20 mL Inj ONE (15:07)
[2016-07-05] MEDS ORDERED: EPINEPHrine 0.1 mg/mL 10 mL Syringe ONE (15:07)
== END 2016-07-05 15:08 | disposition home or self-care (01) | DRG 920 ==
LOC: SED 16:00 → OBSVTOIN 18:13 → PCC 18:13 → CCU 20:35
PROVIDERS: ADMIT Hospitalist; ATTEND Hospitalist
PROC: 0DJ08ZZ Inspection of Upper Intestinal Tract, Via Natural or Artificial Opening Endoscopic (ICD-10-PCS; 2016-07-04)
PROC: 30233N1 Transfusion of Nonautologous Red Blood Cells into Peripheral Vein, Percutaneous Approach (ICD-10-PCS; 2016-07-04)
PROC: 0W3P8ZZ Control Bleeding in Gastrointestinal Tract, Via Natural or Artificial Opening Endoscopic (ICD-10-PCS; principal; 2016-07-05 08:00)
DX: K91.840 Postprocedural hemorrhage of a digestive system organ or structure following a digestive system procedure (principal); D62 Acute posthemorrhagic anemia; K22.70 Barrett's esophagus without dysplasia; I10 Essential (primary) hypertension; E11.9 Type 2 diabetes mellitus without complications; K29.80 Duodenitis without bleeding; K44.9 Diaphragmatic hernia without obstruction or gangrene